=== PATIENT | female | born 1950 | race Caucasian/White ===

== ENCOUNTER → 2017-07-03 08:23 | Outpatient (CLI) | payer MEDICARE, OTHER, SELFPAY ==
--- NOTE | 2017-07-03 | CT_ITS ---
CT abdomen w con CLINICAL INDICATION: Epigastric pain and bloating, midepigastric pain ORDERING PHYSICIAN: Eboni Branch PATIENT AGE: 67 years COMPARISON: None TECHNIQUE: Axial images obtained immediately and delayed following contrast administration with sagittal and coronal reformats. PROCEDURE: Oral Contrast: Redicat IV Contrast: 75 mL Isovue-370. FINDINGS: The Lung bases are clear. Prior cholecystectomy. No ductal dilatation. No focal liver lesions. The spleen, pancreas, adrenal glands, and kidneys have an unremarkable appearance No intestinal obstruction or free air. Pelvis is not included in the exam. The appendix is not included. There are few scattered diverticula within descending colon and splenic flexure. The sigmoid colon is not included on the exam. No acute bony anomalies. There is degenerative disc disease at L2-L3. IMPRESSION: No acute finding of the upper abdomen. Prior cholecystectomy. Scattered colonic diverticulosis
[2017-07-03 09:09] LABS: Blood Urea Nitrogen 7 mg/dL (7-18); Estimated Glomerular Filt Rate 83 ml/min (>60); GFR (African American) 101 ML/MIN (>60)
--- NOTE | 2017-07-03 09:34 | HMH.ITSHM ---
FIBER,CARVEDILOL OMEPRAZOLE,FISHPILL,FLUOXETINE LOVASTATIN,LEVOTHYROIXINE,LOVASTATIN METFORMIN,MONTELELUST PANTOPRAZOLE,PEPCID,BENADRYL
== END ==
PROVIDERS: PCP Physician Assistant; Visit Provider Physician Assistant
DX: R10.13 Epigastric pain (principal); R14.0 Abdominal distension (gaseous); Z01.812 Encounter for preprocedural laboratory examination
CPT/HCPCS: 36415; 74160; 82565; 84520; Q9967

== ENCOUNTER → 2017-11-11 13:57 | Outpatient (CLI) | payer MEDICARE, OTHER, SELFPAY ==
--- NOTE | 2017-11-11 14:04 | XR_ITS ---
XR shoulder LT min 2V HISTORY: ITS.REASON: LEFT SHOULDER PAIN,MUSCLE TENSION,C-SPINE TENDER ORDERING PHYSICIAN: Eboni Branch PATIENT AGE: 67 years Comparison: None FINDINGS: No fracture or dislocation. No lytic or blastic change. There is normal mineralization. The joint spaces are well-preserved. No significant degenerative/arthritic changes. No erosive changes evident. IMPRESSION: Negative, no acute finding
--- NOTE | 2017-11-11 14:04 | XR_ITS ---
EXAM: XR cervical spine 5V HISTORY: ITS.REASON: LEFT SHOULDER PAIN,MUSCLE TENSION,C-SPINE TENDER ORDERING PHYSICIAN: Eboni Branch PATIENT AGE: 67 years COMPARISON: None FINDINGS: Normal alignment. No fracture or dislocation. No lytic or blastic change. No significant degenerative change. The disc spaces are preserved. IMPRESSION: Negative cervical spine
== END ==
PROVIDERS: PCP Physician Assistant; Visit Provider Physician Assistant
DX: M25.512 Pain in left shoulder (principal); M54.2 Cervicalgia
CPT/HCPCS: 72050; 73030

== ENCOUNTER → 2022-01-01 18:16 | Outpatient (CLI) | payer MEDICARE, SELFPAY | LOC: LAB 18:18 → LAB.DROPOF 01-02 10:37 | PROVIDERS: PCP Family Medicine; Visit Provider Family Medicine | DX: N39.0 Urinary tract infection, site not specified (principal); B96.29 Other Escherichia coli [E. coli] as the cause of diseases classified elsewhere | CPT/HCPCS: 87086; 87088; 87186 ==

== ENCOUNTER → 2022-08-16 11:00 | Outpatient (CLI) | payer MEDICARE, SELFPAY ==
[2022-08-16 19:08] LABS: Basophils # 0.1 K/mm3 (0-0.2); Basophils % 1.4 % (0.1-2.0); Eosinophils # 0.4 K/mm3 (0.0-0.4); Eosinophils % 5.6 % (0.1-12.0); Hematocrit 38.4 % (37.0-47.0); Lymphocytes # 1.9 K/mm3 (0.7-4.5); Lymphocytes % 23.5 % (10-50); Mean Corpuscular HGB Conc 31.4 g/dL (31.8-35.4); Mean Corpuscular Hemoglobin 26.4 pg (27.0-31.2); Mean Corpuscular Volume 83.9 fl (81-99); Mean Platelet Volume 11.9 fl (7.4-10.4); Monocytes # 0.5 K/mm3 (0.1-1.0); Monocytes % 6.6 % (1.7-9.3); Neutrophils % 62.8 % (37.0-80.0); Platelet Count 270 K/mm3 (142-424); Red Blood Count 4.57 M/mm3 (4.20-5.40); White Blood Count 7.9 K/mm3 (4.8-10.8)
[2022-08-16 19:25] LABS: Alanine Aminotransferase 13 U/L (12-78); Albumin Level 4.9 g/dl (3.5-5.0); Albumin/Globulin Ratio 1.9 (1.1-1.8); Alkaline Phosphatase 64 U/L (38-126); Anion Gap 15.5 mEq/L (5-15); Aspartate Amino Transferase 25 U/L (14-36); Bilirubin,Total 0.4 mg/dl (0.2-1.3); Blood Urea Nitrogen 8 mg/dl (7-17); Calcium 9.3 mg/dl (8.4-10.2); Carbon Dioxide 21 mmol/L (22.0-30.0); Chloride 104 mmol/L (98-107); Chol/HDL Ratio 3.8 (1-3.5); Cholesterol 196 mg/dl (140-200); Estimated Glomerular Filt Rate 62 ml/min (>60); GFR (African American) 74 ML/MIN (>60); Globulin 2.6 g/dL (1.3-3.2); Glucose 89 mg/dl (74-100); HDL Cholesterol 52 mg/dl (40-60); Potassium 4.5 mmoL/L (3.5-5.1); Sodium 136 mmol/L (136-145); Total Protein,Serum 7.5 g/dl (6.3-8.2); Triglycerides 185 mg/dl (30-150); VLDL Cholesterol 37 mg/dL (0-40)
[2022-08-16 19:36] LABS: Direct LDL Cholesterol 105.22 mg/dL (100-129)
[2022-08-16 19:57] LABS: Thyroid Stimulating Hormone 3.01 uIU/mL (0.465-4.68)
[2022-08-16 19:58] LABS: Hemoglobin A1C 5.2 % (4.0-6.0)
== END ==
PROVIDERS: PCP Nurse Practitioner Family; Visit Provider Nurse Practitioner Family
DX: E11.9 Type 2 diabetes mellitus without complications (principal); E89.0 Postprocedural hypothyroidism; I10 Essential (primary) hypertension; Z00.00 Encounter for general adult medical examination without abnormal findings; Z79.84 Long term (current) use of oral hypoglycemic drugs
CPT/HCPCS: 80053; 80061; 83036; 84443; 85025

== ENCOUNTER → 2022-08-17 19:06 | Outpatient (CLI) | payer MEDICARE, SELFPAY ==
[2022-08-17 21:35] LABS: Microalbumin/Creatinine Ratio 29.1
[2022-08-17 21:41] LABS: Creatinine,Urine Random 113 mg/dL (Not Estab.)
== END ==
PROVIDERS: PCP Nurse Practitioner Family; Visit Provider Nurse Practitioner Family
DX: E11.9 Type 2 diabetes mellitus without complications (principal); Z79.84 Long term (current) use of oral hypoglycemic drugs
CPT/HCPCS: 82043; 82570

== ENCOUNTER → 2022-08-30 09:51 | Outpatient (CLI) | payer MEDICARE, SELFPAY | PROVIDERS: PCP Family Medicine; Visit Provider Family Medicine | DX: R30.0 Dysuria (principal); B96.29 Other Escherichia coli [E. coli] as the cause of diseases classified elsewhere | CPT/HCPCS: 87086; 87088; 87186 ==

== ENCOUNTER → 2022-11-28 10:20 | Outpatient (CLI) | payer MEDICARE, SELFPAY ==
[2022-11-28 16:33] LABS: Basophils # 0.1 K/mm3 (0-0.2); Basophils % 0.9 % (0.1-2.0); Eosinophils # 0.5 K/mm3 (0.0-0.4); Eosinophils % 5.4 % (0.1-12.0); Hematocrit 34.9 % (37.0-47.0); Hemoglobin 10.8 g/dL (12.2-16.2); Lymphocytes # 1.5 K/mm3 (0.7-4.5); Lymphocytes % 18.4 % (10-50); Mean Corpuscular HGB Conc 31.1 g/dL (31.8-35.4); Mean Corpuscular Hemoglobin 27.9 pg (27.0-31.2); Mean Corpuscular Volume 89.7 fl (81-99); Mean Platelet Volume 10.9 fl (7.4-10.4); Monocytes # 0.5 K/mm3 (0.1-1.0); Monocytes % 6.2 % (1.7-9.3); Neutrophils # 5.7 K/mm3 (1.8-7.8); Neutrophils % 69.1 % (37.0-80.0); Platelet Count 270 K/mm3 (142-424); Red Blood Count 3.89 M/mm3 (4.20-5.40); Red Cell Distribution Width 15.4 % (11.5-17.5); White Blood Count 8.3 K/mm3 (4.8-10.8)
[2022-11-28 16:38] LABS: Alanine Aminotransferase 11 U/L (12-78); Albumin Level 4.6 g/dl (3.5-5.0); Albumin/Globulin Ratio 1.8 (1.1-1.8); Alkaline Phosphatase 118 U/L (38-126); Anion Gap 20.7 mEq/L (5-15); Aspartate Amino Transferase 28 U/L (14-36); Bilirubin,Total 0.4 mg/dl (0.2-1.3); Blood Urea Nitrogen 7 mg/dl (7-17); Calcium 10.1 mg/dl (8.4-10.2); Carbon Dioxide 20 mmol/L (22.0-30.0); Chloride 104 mmol/L (98-107); Cholesterol 146 mg/dl (140-200); Estimated Glomerular Filt Rate 55 ml/min (>60); GFR (African American) 66 ML/MIN (>60); Globulin 2.6 g/dL (1.3-3.2); Glucose 82 mg/dl (74-100); HDL Cholesterol 49 mg/dl (40-60); Magnesium 1.7 mg/dl (1.6-2.3); Potassium 4.7 mmoL/L (3.5-5.1); Sodium 140 mmol/L (136-145); Total Protein,Serum 7.2 g/dl (6.3-8.2); Triglycerides 129 mg/dl (30-150); VLDL Cholesterol 26 mg/dL (0-40)
[2022-11-28 16:49] LABS: Direct LDL Cholesterol 73.78 mg/dL (100-129)
== END ==
PROVIDERS: PCP Family Medicine; Visit Provider Family Medicine
DX: I10 Essential (primary) hypertension (principal); R53.83 Other fatigue; Z00.00 Encounter for general adult medical examination without abnormal findings; Z79.899 Other long term (current) drug therapy
CPT/HCPCS: 80053; 80061; 83735; 84443; 85025

== ENCOUNTER → 2023-01-03 16:40 | Outpatient (CLI) | payer MEDICARE, SELFPAY ==
[2023-01-03 16:31] LABS: Basophils # 0.1 K/mm3 (0-0.2); Basophils % 0.7 % (0.1-2.0); Eosinophils # 0.3 K/mm3 (0.0-0.4); Eosinophils % 4.3 % (0.1-12.0); Hematocrit 34.3 % (37.0-47.0); Hemoglobin 10.8 g/dL (12.2-16.2); Lymphocytes # 1.9 K/mm3 (0.7-4.5); Lymphocytes % 24.2 % (10-50); Mean Corpuscular HGB Conc 31.4 g/dL (31.8-35.4); Mean Corpuscular Hemoglobin 27.3 pg (27.0-31.2); Mean Corpuscular Volume 86.9 fl (81-99); Mean Platelet Volume 11.2 fl (7.4-10.4); Monocytes # 0.7 K/mm3 (0.1-1.0); Monocytes % 9.3 % (1.7-9.3); Neutrophils # 4.7 K/mm3 (1.8-7.8); Neutrophils % 61.5 % (37.0-80.0); Platelet Count 237 K/mm3 (142-424); Red Blood Count 3.94 M/mm3 (4.20-5.40); Red Cell Distribution Width 14.4 % (11.5-17.5); White Blood Count 7.7 K/mm3 (4.8-10.8)
== END ==
PROVIDERS: PCP Family Medicine; Visit Provider Family Medicine
DX: K59.00 Constipation, unspecified (principal)
CPT/HCPCS: 85025

== ENCOUNTER → 2023-04-04 23:46 | Outpatient (CLI) | payer MEDICARE, SELFPAY ==
--- OUTSIDE RECORDS SUMMARY | 2023-04-04 23:48 | XMS_ITS | Continuity of Care Document ---
Author Name Unknown Organization [facility] Address [address] [address] Phone Care Team Providers Care Utilization Management Nurse Name Role Phone Maverick Pino DO Unavailable Unavailable Allergies, Adverse Reactions, Alerts Substance Reaction Status Criticality methotrexate RashRash Active No Information grass pollen Active No Information tree and shrub pollen Active No Inf ormation Medications Medication Instructions Dosage Effective Dates (start - stop) Status Comments Plaquenil 200 mg tablet take 1 tablet by oral route 2 times every day 200 MG - Active pantoprazole 40 mg tablet,delayed release take 1 tablet by oral route every day 40 MG - Active Linzess 145 mcg capsule take 1 capsule by oral route every day on an empty stomach at least 30 minutes before 1st meal of the day 145 MCG - Active methimazole 10 mg tablet take 1 tablet by oral route 2 times every day 10 MG - Active diclofenac 1 % topical gel apply (2G) by topical route 2 times every day to the affected area(s) 2 G - Active Synthroid 75 mcg tablet take 1 tablet by oral route every day 75 MCG - Active
== END ==
PROVIDERS: PCP Family Medicine; Visit Provider Nurse Practitioner Family
DX: R30.0 Dysuria (principal); B96.29 Other Escherichia coli [E. coli] as the cause of diseases classified elsewhere; B96.1 Klebsiella pneumoniae [K. pneumoniae] as the cause of diseases classified elsewhere; B96.4 Proteus (mirabilis) (morganii) as the cause of diseases classified elsewhere
CPT/HCPCS: 87086

== ENCOUNTER 2023-08-02 08:42 | Outpatient (CLI) | payer MEDICARE, SELFPAY ==
--- NOTE | 2023-08-02 08:43 | FL_ITS ---
FINAL REPORT CLINICAL HISTORY: .dysphagia 2.33 fluoro time 2635.58 dap FINDINGS: UPPER GI WITH SBFT UPPER GI EXAM HISTORY: Abdominal pain, nausea. PROCEDURE: The patient ingested barium. Effervescent crystals were also administered. Spot and overhead films were obtained. FINDINGS: The esophagus is normal. There is no hiatal hernia. There is no gastroesophageal reflux. Peristalsis is normal. The rugal fold pattern of the stomach is normal. The duodenal bulb is normal. IMPRESSION: Normal upper GI. SBFT: The automobile salesman film is normal. There is no evidence of obstruction. The mucosal fold pattern is normal. The terminal ilium is normal. IMPRESSION: Normal SBFT. Fluoroscopy time: 2 minutes 33 seconds Fluoro dose: 2635.58 DAP in [employer] reviewed , interpreted and dictated by Dr. Angelica Rodriguez. Transcribed by James Giron PA-C. Reviewed, Interpreted and Dictated by Angelica Rodriguez MD Transcribed by DIONI Palma Authenticated and [facility]
[2023-08-02] MEDS: E-Z-GASII EFFERVESCENT GRANULES;1PK 1 EACH PO (09:19)
[2023-08-02] MEDS: BARIUM SULFATE (E-Z-HD 340GM);135ML BOTTLE 135 ML PO (09:19)
[2023-08-02] MEDS: BARIUM SULFATE(E-Z-AC);750ML BOTTLE 750 ML PO (09:19)
== END 2023-08-02 23:59 ==
LOC: RAD 08:43
PROVIDERS: PCP Family Medicine; Visit Provider Surgery
DX: R13.10 Dysphagia, unspecified (principal)
CPT/HCPCS: 74246; 74248

== ENCOUNTER 2023-08-09 09:51 | Day surgery (SDC) | payer MEDICARE, SELFPAY ==
[2023-08-07 12:07] VITALS: BMI 26.9
[2023-08-09 10:16] VITALS: BP 146/96; PULSE 64; RESP 18; TEMP 36.3; O2SAT 99
[2023-08-09] MEDS: LACTATED RINGERS 1000ML 1,000 ML 25 ML IV (10:16)
[2023-08-09 10:36] LABS: POC Glucose,Bedside 94 (70-110)
--- NOTE | 2023-08-09 11:15 | P.PNANES_ITS ---
[facility] Disclaimer: The information contained in this section may have been updated after the patient was seen, as this information can be updated by other users. Medical History DM2 (diabetes mellitus, type 2) Hypertension Rheumatoid arthritis Surgical History History of eye surgery History of tubal ligation History of hysterectomy S/P thyroidectomy Family History Grandmother Cancer Mother Cancer Father Heart attack Social History Smoking Status: Never smoker alcohol intake: never substance use type: denies use current occupational status: retired Travel in the last 8 weeks: None household members: spouse housing: house [facility] Anesthesia Checklist Patient Identification Patient Identification: Arm Band and Verbal (Name & ) Structural Data Admitted From: Home Planned Operative Procedure/s: EGD Consent for Planned Operative Procedure(s) Verified: Yes NPO Status Verified Time NPO: 00:00 Neurological Assessment Level of Consciousness: Awake Hx Seizures: No Numbness or tingling in extremities: No Anesthesia Plan Anesthesia Risk discussed: Yes Anesthesia Plan: Verified ASA Class: III Anesthesia Type: MAC
--- NOTE | 2023-08-09 11:39 | P.PCN_ITS ---
Procedure: Date: 08/09/23 Patient Date of :: 1950 Procedure Performed:: Esophagogastroduodenoscopy with biopsies Indications:: Patient is a 73-year-old female from [facility] referred by Audi ayala MD for swallowing issues . She states that I had previously performed cholecystectomy on her in [place] in 2011. She has had problems for many years consistent with dysphagia. She states that she has some substernal pain which radiates into her epigastric area to the left side. She does state that she has a known hiatal hernia. She was seen in the office in consultation she stated th at she has previously had colonoscopy done by Dr. Donnelly 3 years ago and that she has not had an upper endoscopy. She had a thyroidectomy 2 years ago. She occasionally awakens at night with heartburn. She has double of her proton pump inhibitors. She states that foods such as hamburger seemed to be somewhat worse. Arrangements were made to proceed with upper endoscopy with possible dilatation. I did have her undergo upper GI series to assess for stricture/stenosis/achalasia. She had a normal upper GI series with small bowel follow-through. She was seen in the preoperative area prior to planned endoscopy she stated that she believes she has had previous upper endoscopy by gastroenterology. . Performing Provider:: James Mullins MD Referring Provider:: Audi Poole MD Sedation:: MAC sedation Procedure:: Patient history was obtained and appropriate physical examination was performed. Patient's medications and allergies were reviewed. Informed consent was obtained after explaining the benefits, alternatives, and risks of the procedure including, but not limited to, bleeding, perforation, missed lesions, and adverse reaction to anesthesia medications. Patient was transported to endoscopy procedure room. Patient was connected to monitoring devices. Throughout the procedure the patient's blood pressure, pulse, and oxygen saturations were monitored continuously. Patient identification and planned procedure were verified by the staff. Patient was positioned in lateral decubitus position. Olympus endoscope was inserted via the oropharynx. Esophagus was cannulated. There was some mild tortuosity to the esophagus consistent with mild esophageal dysmotility. Gastroesophageal junction was encountered at approximately 38 cm. Stomach was cannulated and insufflated. Retroflexion revealed an extremely tiny sliding hiatal hernia. There were numerous polyps within the stomach consistent with fundic gland polyps. There were findings of mild to moderate nonerosive gastritis. Biopsy was performed at a couple of locations. Pylorus was traversed. Duodenum appeared unremarkable. Endoscope was withdrawn into the distal esophagus. A couple biopsies were obtained at the gastroesophageal junction. Distal esophageal biopsy was obtained to evaluate for microscopic esophagitis. Endoscope was withdrawn. . Findings:: Mild esophageal dysmotility Gastroesophageal junction at 38 cm Extremely tiny hiatal hernia Fundic gland polyps Mild to moderate nonerosive gastritis Recommendations:: Follow-up on biopsy results Complications:: None immediate Estimated blood obtained (mL): 2 Colonoscopy Component Colonoscopy Component Was a colonoscopy performed during today's procedure?: No
[2023-08-09 12:06] VITALS: BP 108/63; PULSE 73; RESP 16; TEMP 36.6; O2SAT 94
[2023-08-09 12:16] VITALS: BP 103/65; PULSE 70; RESP 18; O2SAT 99
[2023-08-09 12:26] VITALS: BP 103/50; PULSE 69; RESP 18; O2SAT 96
== END 2023-08-09 12:45 | disposition home or self-care (01) ==
PROVIDERS: PCP Family Medicine; Visit Provider Surgery
PROC: 0DJ08ZZ Inspection of Upper Intestinal Tract, Via Natural or Artificial Opening Endoscopic (ICD-10-PCS; CPT 43235; principal; 2023-08-09 11:00)
DX: R13.10 Dysphagia, unspecified (principal); K22.4 Dyskinesia of esophagus; K44.9 Diaphragmatic hernia without obstruction or gangrene; K31.7 Polyp of stomach and duodenum; K29.60 Other gastritis without bleeding; E11.9 Type 2 diabetes mellitus without complications
CPT/HCPCS: 43239; 82962; 88305

== ENCOUNTER 2023-09-02 17:37 | Outpatient (CLI) | payer MEDICARE, SELFPAY | END 2023-09-02 23:59 | LOC: LAB.DROPOF 17:37 | PROVIDERS: PCP Family Medicine; Visit Provider Family Medicine | DX: N39.0 Urinary tract infection, site not specified (principal); B96.89 Other specified bacterial agents as the cause of diseases classified elsewhere | CPT/HCPCS: 87086 ==

== ENCOUNTER 2023-09-11 09:07 | Outpatient (CLI) | payer MEDICARE, SELFPAY ==
--- NOTE | 2023-09-11 09:08 | CT_ITS ---
FINAL REPORT CLINICAL HISTORY: r/o hematoma; headache; falls FINDINGS: Axial images of the head were obtained without contrast. Coronal reformatted images were also obtained. This study was performed with techniques to keep radiation doses as low as reasonably achievable (ALARA). Individualized dose reduction techniques using automated exposure control or adjustment of mA and/or kV according to the patient''s size were employed. There is generalized age-appropriate atrophy. Periventricular low-attenuation areas are seen consistent with mild chronic ischemic changes. There is no evidence of intracranial hemorrhage or mass. There is no evidence of acute infarct. There is no evidence of shift of the midline structures. No skull abnormality is seen on the bone window images. IMPRESSION: Atrophy and mild periventricular chronic ischemic changes. No acute intracranial abnormality identified. Reviewed, Interpreted and Dictated by James Crenshaw III, MD Transcribed by Lorena Negron Authenticated and [facility]
== END 2023-09-11 23:59 | disposition home or self-care (01) ==
LOC: RAD 09:08
PROVIDERS: PCP Family Medicine; Visit Provider Family Medicine
DX: D64.9 Anemia, unspecified (principal); E89.0 Postprocedural hypothyroidism; E11.9 Type 2 diabetes mellitus without complications; I10 Essential (primary) hypertension; M06.9 Rheumatoid arthritis, unspecified; R51.9 Headache, unspecified
CPT/HCPCS: 70450

== ENCOUNTER 2023-11-21 13:10 | Outpatient (CLI) | payer MEDICARE, SELFPAY | END 2023-11-21 23:59 | disposition home or self-care (01) | LOC: LAB.DROPOF 11-22 09:52 | PROVIDERS: PCP Family Medicine; Visit Provider Nurse Practitioner Family | DX: R39.9 Unspecified symptoms and signs involving the genitourinary system (principal) | CPT/HCPCS: 87086 ==

== ENCOUNTER 2023-12-09 16:03 | Outpatient (CLI) | payer MEDICARE, SELFPAY ==
[2023-12-15 00:07] LABS: Atopobium vaginae Low - 0 Score (.); BVAB2 Low - 0 Score (.); Candida albicans NAA Negative (Negative); Candida glabrata Negative (Negative); Chlamydia Trachomatis NAA Negative (Negative); HSV 1 NAA Negative (Negative); HSV 2 NAA Negative (Negative); Megasphaera 1 Low - 0 Score (.); Neisseria gonorrhoeae NAA Negative (Negative); Trich vag NAA Negative (Negative)
== END 2023-12-09 23:59 | disposition home or self-care (01) ==
LOC: LAB.DROPOF 16:04
PROVIDERS: PCP Urology; Visit Provider Urology
DX: N89.8 Other specified noninflammatory disorders of vagina (principal)
CPT/HCPCS: 87491; 87529; 87591; 87661; 87798; 87801

== ENCOUNTER 2023-12-18 13:05 | Outpatient (CLI) | payer MEDICARE, SELFPAY ==
--- NOTE | 2023-12-18 13:06 | US_ITS ---
FINAL REPORT TECHNIQUE: Ultrasound images of the kidneys and bladder were obtained. CLINICAL HISTORY: .utis FINDINGS: The right kidney measures 8.2 cm in length. It is normal in echogenicity. There is no hydronephrosis. The left kidney measures 9.6 cm in length. It is normal in echogenicity. There is no hydronephrosis. The spleen is unremarkable. IMPRESSION: No acute process. Reviewed, Interpreted and Dictated by Angelica Rodriguez MD Transcribed by Lorena Negron Authenticated and [facility]
--- NOTE | 2023-12-18 13:06 | US_ITS ---
FINAL REPORT CLINICAL HISTORY: UTI FINDINGS: Limited sonographic images of the bladder were obtained. No bladder wall thickening is identified. At least 1 ureteral jet is visualized. There is a very small amount of postvoid residual of 18 cc. IMPRESSION: Very small amount of postvoid residual. Reviewed, Interpreted and Dictated by Angelica Rodriguez MD Transcribed by Lorena Negron Authenticated and [facility]
== END 2023-12-18 23:59 | disposition home or self-care (01) ==
LOC: RAD 13:06
PROVIDERS: PCP Family Medicine; Visit Provider Urology
DX: N39.3 Stress incontinence (female) (male) (principal); N39.0 Urinary tract infection, site not specified
CPT/HCPCS: 76770; 76857

== ENCOUNTER 2024-01-07 11:39 | Outpatient (CLI) | payer MEDICARE, SELFPAY | END 2024-01-07 23:59 | disposition home or self-care (01) | LOC: LAB.DROPOF 01-08 11:39 | PROVIDERS: PCP Nurse Practitioner Family; Visit Provider Nurse Practitioner Family | DX: R05.9 Cough, unspecified (principal); J06.9 Acute upper respiratory infection, unspecified | CPT/HCPCS: 87635 ==

== ENCOUNTER 2024-03-25 11:36 | Outpatient (CLI) | payer MEDICARE, SELFPAY | END 2024-03-25 23:59 | disposition home or self-care (01) | LOC: RT 11:38 | PROVIDERS: PCP Family Medicine; Visit Provider Nurse Practitioner Family | DX: R55 Syncope and collapse (principal) | CPT/HCPCS: 93225; 93227 ==

== ENCOUNTER 2024-03-27 12:45 | Outpatient (CLI) | payer MEDICARE, SELFPAY | END 2024-03-27 23:59 | disposition home or self-care (01) | LOC: RT 12:46 | PROVIDERS: PCP Family Medicine; Visit Provider Physician Assistant | DX: R55 Syncope and collapse (principal) | CPT/HCPCS: 93270 ==

== ENCOUNTER 2024-04-03 07:34 | Outpatient (CLI) | payer MEDICARE, SELFPAY ==
--- NOTE | 2024-04-03 07:42 | CA_ITS ---
APPROVED REPORT EXAM: Comprehensive 2D, Doppler, and color-flow Echocardiogram Precision Layout Worker: Diana Gonzales CRT Ht: 5 ft 2 in Wt: 156lbs BSA: 1.72 BP: 130/76 mmHg Indications: Chest Pain, Shortness of Breath, Fatigue, Peripheral Edema, Hyperlipidemia, Hypertension/HDD 2D Dimensions LA Volume 57.10 mL LA Volume Index 32.40 mL/m2 (M/F) 16-34 M-Mode Dimensions RVDd 2.54 cm (0.9-2.6) LA Diam 3.59 cm (1.9-4.0) LVDd 4.54 cm (3.5-5.7) LVDs 3.04 cm (3.5-5.7) IVSd 1.43 cm (0.6-1.1) PWd 1.14 cm (0.6-1.1) EF (Teich) 61.70% FS 33.00% EDV (Teich) 94.40 mL TAPSE 1.93 (<1.7) ESV (Teich) 36.20 mL LV Diastology E Decel Time 150 (160-240 msec) E/A Ratio 0.73 MED A' 8.60 cm/s LAT A' 8.80 cm/s Aortic Valve AO Peak GR. 7.20 mmHg Mitral Valve MV A Velocity 80.0 (40-130 cm/s) E/A Ratio 0.73 Pulmonary Valve PV Peak Velocity 117.0 (50-150 cm/s) Tricuspid Valve TR P. Velocity 243.00 cm/s RAP Estimate 10.00 mmHg RVSP 33.60 mmHg Left Ventricle The left ventricle is normal size. The left ventricular systolic function is normal. The left ventricular ejection fraction is within the normal range. There is increased LV wall thickness. There is normal LV segmental wall motion. Transmitral Doppler flow pattern suggests impaired LV relaxation. LVEF is 50-55%. Right Ventricle The right ventricle is not well-visualized, but grossly the RV is mild to moderately dilated. Right ventricle is mildly to moderately hypokinetic. Atria Left atrium is mildly dilated. Right atrium is mildly dilated. There is no Doppler evidence of interatrial shunt. Aortic Valve The aortic valve is mildly thickened. There is no aortic valvular stenosis. Trace aortic regurgitation. Mitral Valve The mitral valve leaflets are mildly thickened. No evidence of mitral valve stenosis. Trace mitral regurgitation. Tricuspid Valve The tricuspid valve leaflets are thin and pliable. Moderate tricuspid regurgitation. RVSP is 25 mmHg + RA pressure. Pulmonic Valve The pulmonary valve is normal in structure. Trace pulmonic regurgitation. Great Vessels The aortic root is normal in size. The ascending aorta is not well-visualized. The IVC is not well-visualized. Pericardium There is no pericardial effusion. Other Information Study Quality: Fair Conclusion Normal LV systolic function. The RV is not very well-visualized, but grossly there is mild to moderate RV dilation with mild to moderate reduction in RV function. Moderate TR. RVSP is 25 mmHg + RA pressure. Electronically signed by : More Cheung MD 04/10/2024 23:48:48
[2024-04-03 08:37] LABS: Basophils # 0.1 K/mm3 (0-0.2); Basophils % 1.3 % (0.1-2.0); Eosinophils # 0.4 K/mm3 (0.0-0.4); Eosinophils % 6.1 % (0.1-12.0); Hemoglobin 10.6 g/dL (12.2-16.2); Lymphocytes # 1.6 K/mm3 (0.7-4.5); Lymphocytes % 27.5 % (10-50); Mean Corpuscular HGB Conc 32.2 g/dL (31.8-35.4); Mean Corpuscular Hemoglobin 26.1 pg (27.0-31.2); Mean Corpuscular Volume 81.1 fl (81-99); Mean Platelet Volume 9.9 fl (7.4-10.4); Monocytes # 0.5 K/mm3 (0.1-1.0); Monocytes % 8.1 % (1.7-9.3); Neutrophils # 3.3 K/mm3 (1.8-7.8); Platelet Count 188 K/mm3 (142-424); Red Blood Count 4.07 M/mm3 (4.20-5.40); White Blood Count 5.8 K/mm3 (4.8-10.8)
[2024-04-03 09:22] LABS: Free T4 (Free Thyroxine) 1.02 ng/dl (0.78-2.19)
[2024-04-03 10:35] LABS: Albumin Level 4.8 g/dl (3.5-5.0); Chloride 107 mmol/L (98-107); Potassium 4.4 mmoL/L (3.5-5.1); Sodium 139 mmol/L (136-145)
[2024-04-03 10:37] LABS: Alanine Aminotransferase 16 U/L (12-78); Bilirubin,Unconjugated 0.1 mg/dL (0.0-1.1); Blood Urea Nitrogen 13 mg/dl (7-17); Estimated Glomerular Filt Rate 37 ml/min (>60); GFR (African American) 45 ML/MIN (>60)
[2024-04-03 10:38] LABS: Alkaline Phosphatase 55 U/L (38-126); Anion Gap 16.4 mEq/L (5-15); Aspartate Amino Transferase 35 U/L (14-36); Bilirubin,Direct 0.4 mg/dl (0.0-0.4); Bilirubin,Indirect 0.1 mg/dL (0.0-0.9); Bilirubin,Total 0.5 mg/dl (0.2-1.3); Calcium 9.6 mg/dl (8.4-10.2); Carbon Dioxide 20 mmol/L (22.0-30.0); Chol/HDL Ratio 3.6 (1-3.5); Cholesterol 191 mg/dl (140-200); Glucose 115 mg/dl (74-100); HDL Cholesterol 53 mg/dl (40-60); Total Protein,Serum 7.6 g/dl (6.3-8.2); Triglycerides 124 mg/dl (30-150); VLDL Cholesterol 25 mg/dL (0-40)
[2024-04-03 10:49] LABS: Direct LDL Cholesterol 107.52 mg/dL (100-129)
[2024-04-03 11:08] LABS: Thyroid Stimulating Hormone 0.87 uIU/mL (0.465-4.68)
== END 2024-04-03 23:59 | disposition home or self-care (01) ==
LOC: RT 07:36
PROVIDERS: PCP Family Medicine; Visit Provider Physician Assistant
DX: I36.1 Nonrheumatic tricuspid (valve) insufficiency (principal); R53.83 Other fatigue; R55 Syncope and collapse; R07.9 Chest pain, unspecified; R06.00 Dyspnea, unspecified; I10 Essential (primary) hypertension
CPT/HCPCS: 36415; 80048; 80061; 80076; 84439; 84443; 85025; 93306

== ENCOUNTER 2024-04-09 09:28 | Outpatient (CLI) | payer MEDICARE, SELFPAY ==
[2024-04-09 16:47] LABS: Creatinine,Urine Random 47 mg/dL (Not Estab.)
[2024-04-09 16:58] LABS: Microalbumin/Creatinine Ratio 70.6
== END 2024-04-09 23:59 | disposition home or self-care (01) ==
LOC: LAB.DROPOF 04-10 08:14
PROVIDERS: PCP Family Medicine; Visit Provider Family Medicine
DX: E11.9 Type 2 diabetes mellitus without complications (principal); R10.9 Unspecified abdominal pain; N39.0 Urinary tract infection, site not specified
CPT/HCPCS: 82043; 82570; 87086

== ENCOUNTER 2024-04-22 09:33 | Outpatient (CLI) | payer MEDICARE, SELFPAY ==
[2024-04-22 10:20] LABS: Anion Gap 18.5 mEq/L (5-15); Blood Urea Nitrogen 14 mg/dl (7-17); Calcium 9.7 mg/dl (8.4-10.2); Carbon Dioxide 20 mmol/L (22.0-30.0); Chloride 104 mmol/L (98-107); Estimated Glomerular Filt Rate 37 ml/min (>60); GFR (African American) 45 ML/MIN (>60); Glucose 95 mg/dl (74-100); Potassium 4.5 mmoL/L (3.5-5.1); Sodium 138 mmol/L (136-145)
== END 2024-04-22 23:59 | disposition home or self-care (01) ==
LOC: LAB 09:34
PROVIDERS: PCP Family Medicine; Visit Provider Physician Assistant
DX: R79.89 Other specified abnormal findings of blood chemistry (principal)
CPT/HCPCS: 36415; 80048

== ENCOUNTER 2024-05-29 15:22 | Emergency (ER) | payer MEDICARE, SELFPAY ==
[2024-05-29 16:10] VITALS: BP 114/47; PULSE 92; RESP 22; TEMP 36.8; O2SAT 98; BMI 25.6
[2024-05-29 16:32] LABS: UTC Influenza A Antigen Negative (Negative); UTC Influenza B Antigen Negative (Negative)
--- NOTE | 2024-05-29 16:34 | EXP.UTC ---
Discharge Plan Disposition Patient Disposition: Home, Self-Care Condition: Good Prescriptions Prescriptions: New oseltamivir [Tamiflu] 75 mg capsule 75 mg PO BID 5 Days Qty: 10 0RF No Action trazodone 50 mg tablet 50 mg PO HS Patient Comments: TAKE 2 TABLETS BY MOUTH AT BEDTIME NEEDED FOR SLEEP carvedilol 3.125 mg tablet 3.125 mg PO BID Patient Comments: TAKE 1 TABLET BY MOUTH TWICE DAILY WITH FOOD levothyroxine 75 mcg tablet 75 mcg PO DAILY Patient Comments: TAKE 1 TABLET BY MOUTH ONCE DAILY tamsulosin 0.4 mg capsule 0.4 mg PO DAILY Patient Comments: TAKE 1 CAPSULE BY MOUTH ONCE DAILY gemfibrozil 600 mg tablet 600 mg PO DAILY Patient Comments: TAKE 1 TABLET BY MOUTH ONCE DAILY FOR 90 DAYS FOR HYPERLIPIDEMIA pantoprazole 40 mg tablet,delayed release (DR/EC) 40 mg PO BID Patient Comments: TAKE 1 TABLET BY MOUTH TWICE DAILY FOR GERD buspirone 10 mg tablet 10 mg PO BID Patient Comments: TAKE 1 TABLET BY MOUTH TWICE DAILY FOR ANXIETY montelukast 10 mg tablet 10 mg PO DAILY Patient Comments: TAKE 1 TABLET BY MOUTH ONCE DAILY FOR ALLERGIES FOR 90 DAYS hydroxychloroquine 200 mg tablet 200 mg PO BID Patient Comments: TAKE 1 TABLET 2 TIMES EACH DAY lovastatin 20 mg tablet 20 mg PO DAILY Patient Comments: TAKE 2 TABLETS BY MOUTH ONCE DAILY Referrals Follow up/Referrals: Audi Poole MD [Primary Care Provider] - See instructions Activity Restrictions/Add. Instructions Additional Instructions/Restrictions: Start Tamiflu today if you are going to take it. Discussed risk and possible benefits. Lots of rest Increase Fluids water, Gatorade, powerade, pedialyte,if /toddler/child Alternate Tylenol and / or ibuprofen as discussed for fever, aches, chills Follow up IMMEDIATELY with your family doctor for new or worsening Symptoms OR no noticeable improvement over the next 48-72 hours, 911 for difficulty or breathing You or your child area contagious until no fever, aches, chills for 24 hours with medication for symptoms Help Prevent the spread of influenza: ?Wash your hands often. Use soap and water. Wash your hands after you use the bathroom, change a child's diapers, or sneeze. Wash your hands before you prepare or eat food. Use gel hand cleanser that has 60% alcohol, when soap and water are not available. Do not touch your eyes, nose, or mouth unless you have washed your hands first. Cover your mouth when you sneeze or cough. Cough into a tissue or the bend of your arm. If you use a tissue, throw it away immediately and wash your hands. Clean shared items with a germ-killing bottle packing machine cleaner. Clean table surfaces, doorknobs, and light switches. Do not share towels, silverware, and dishes with people who are sick. Wash bed sheets, towels, silverware, and dishes with soap and water. Wear a mask over your mouth and nose if you are sick. The face mask may help protect others from becoming infected with the flu. Wear the mask when in common areas of your home or if you seek care with a healthcare provider. Stay away from others if you are sick. Stay at home until 24 hours after your fever and symptoms are gone. Clinical Impressions Clinical Impression: Flu-like symptoms Instructions Patient Instructions: DI for Influenza -- Adult, Oseltamivir Print Language Print Language: Honduran Discharge ED Provider[place] Yane [place]on [facility] [place] General Stated complaint: flu exposure, chills, h/a, cough, sore throat Mode of Arrival: Ambulatory Source of Information: Patient Limitations: No Limitations Time Seen by Provider: 05/29/24 16:35 Description of Symptoms (Recalled from Triage Doc. by RN): PATIENT C/O SORE THROAT, CHILLS, AND BODY ACHES THAT STARTED TODAY. PATIENT STATES HER HAS THE FLU HEENT Symptoms (Recalled from RN notes): Yes Resp Symptoms (Recalled from RN notes): No Skin Symptoms (Recalled from RN notes): No MS Symptoms (Recalled from RN notes): No Functional Status (Recalled from RN notes): WNL History of Present Illness Provider Complaint: Patient states that her currently has the flu States today she started having symptoms and wanted to come in and get tamiflu States that she is having body aches, chills, headache and ear pain and scratchy throat Related Data Home Medications ?Medication ?Instructions ?Recorded ?Confirmed buspirone 10 mg tablet 10 mg PO BID 05/29/24 05/29/24 carvedilol 3.125 mg tablet 3.125 mg PO BID 05/29/24 05/29/24 gemfibrozil 600 mg tablet 600 mg PO DAILY 05/29/24 05/29/24 hydroxychloroquine 200 mg tablet 200 mg PO BID 05/29/24 05/29/24 levothyroxine 75 mcg tablet 75 mcg PO DAILY 05/29/24 05/29/24 lovastatin 20 mg tablet 20 mg PO DAILY 05/29/24 05/29/24 montelukast 10 mg tablet 10 mg PO DAILY 05/29/24 05/29/24 pantoprazole 40 mg tablet,delayed 40 mg PO BID 05/29/24 05/29/24 release tamsulosin 0.4 mg capsule 0.4 mg PO DAILY 05/29/24 05/29/24 trazodone 50 mg tablet 50 mg PO HS 05/29/24 05/29/24 Previous Rx's ?Medication ?Instructions ?Recorded oseltamivir 75 mg capsule (Tamiflu) 75 mg PO BID 5 days #10 caps 05/29/24 Allergies Allergy/AdvReac Type Severity Reaction Status Date / Time ampicillin AdvReac Gastrointestinal Verified 04/22/24 10:38 Upset Worker's Comp Is this a Worker's Comp case?: No [facility] Disclaimer: The information contained in this section may have been updated after the patient was seen, as this information can be updated by other users. Medical History (Updated 05/29/24 @ 16:41 by Yane Pavon APRN) Right ventricular dilation Wheezing Elevated serum creatinine DM2 (diabetes mellitus, type 2) Hypertension Rheumatoid arthritis Surgical History History of esophagogastroduodenoscopy (EGD) History of eye surgery History of tubal ligation History of hysterectomy S/P thyroidectomy Family History Grandmother Cancer Mother Cancer Father Heart attack Social History Smoking Status: Never smoker alcohol intake: never substance use type: denies use current occupational status: retired Travel in the last 8 weeks: None household members: spouse housing: house Have you lived/traveled outside US in past 30 days?: No Contact w/someone who lives/traveled outside US past 30 days?: No Exposure to someone with infectious disease in past 14 days?: Yes Do you have a fever (greater than 100.4 F or 38 C)?: No Have you tested positive for COVID-19: No Exposed to someone with COVID-19 in past 14 days?: No Do you have a sore throat?: Yes Do you have a cough?: Yes Do you have any weakness?: No Do you have any diarrhea?: No Are you experiencing any unusual bleeding?: No Do you have any muscle aches/pain?: No Do you have any abdominal pain?: No Are you experiencing loss of taste or smell?: No ROS Obtained: Yes All systems reviewed & no additional complaints except as documented and Yes Systems reviewed as appropriate & no additional complaints except as documented Constitutional Constitutional: Reports system reviewed and no additional complaints, except as documented, Reports as per HPI, Reports body ache, Reports chills, Reports fever(s) and Reports headache(s) ENT Ears, Nose, Mouth, and Throat: Reports system reviewed and no additional complaints, except as documented, Reports as per HPI, Reports headache(s), Reports nasal congestion, Reports nasal discharge and Reports sore throat Cardiovascular Cardiovascular: Reports system reviewed and no additional complaints, except as documented and Reports as per HPI Respiratory Respiratory: Reports system reviewed and no additional complaints, except as documented and Reports as per HPI Gastrointestinal Gastrointestingal: Reports system reviewed and no additional complaints, except as documented and as per HPI Neurologic Neurologic: Reports headache(s) Physical Exam General General appearance: alert and in no apparent distress ENT ENT exam: Present mucous membranes moist Expanded ENT Exam TM/Canal exam: Right TM: bulging Nose exam: Present other (clear drainage) Throat exam: Present normal inspection Respiratory Respiratory exam: Present normal lung sounds bilaterally; Absent respiratory distress or wheezes Cardiovascular Cardiovascular exam: Present regular rate, normal rhythm and normal heart sounds Abdominal Exam Abdominal exam: Present soft, distention and normal bowel sounds Neurological Exam Neurological exam: Present alert, oriented X3 and normal gait Medical Decision Making Medical Records Screening: Per USPSTF and CDC recommendations, given the prevalence of disease in our region, it is our hospital?s policy to screen for HIV and viral Hepatitis for all patients aged 18 and over and those with ongoing risk factors. [place] Inquiry Pt receiving controlled substance: No [place] was queried for this patient: No Vital Signs: 05/29/24 16:10 Temperature 98.2 F Temperature Source Oral Pulse Rate [Left Brachial] 92 H Respiratory Rate 22 Blood Pressure [Left Arm] 114/47 L Blood Pressure Mean [Left Arm] 69 Blood Pressure Source [Left Arm] Automatic Cuff Blood Pressure Position [Left Arm] Sitting 02 Sat by Pulse Oximetry 98 Oxygen Delivery Method Room Air Lab Data Lab results reviewed: Yes I reviewed the patient's lab results. Lab Results 05/29/24 16:09: Influenza Type A Ag Negative, Influenza Type B Ag Negative Medical Decision Narrative: discussed Mini Panel and pateint declined requesting Tamiflu
[2024-05-29 16:47] VITALS: BP 114/47; PULSE 92; RESP 22; TEMP 36.8; O2SAT 98
== END 2024-05-29 16:49 | disposition home or self-care (01) ==
PROVIDERS: Emergency Provider Nurse Practitioner; PCP Family Medicine
DX: J10.1 Influenza due to other identified influenza virus with other respiratory manifestations (principal)
CPT/HCPCS: 87804; 99213; G0381

== ENCOUNTER 2024-06-10 10:15 | Outpatient (CLI) | payer MEDICARE, SELFPAY | END 2024-06-10 23:59 | LOC: LAB.DROPOF 06-11 09:23 | PROVIDERS: PCP Family Medicine; Visit Provider Family Medicine | DX: J02.9 Acute pharyngitis, unspecified (principal) | CPT/HCPCS: 87070 ==

== ENCOUNTER 2024-08-24 09:27 | Outpatient (CLI) | payer MEDICARE, SELFPAY | END 2024-08-24 23:59 | disposition home or self-care (01) | LOC: LAB.DROPOF 08-26 11:46 | PROVIDERS: PCP Family Medicine; Visit Provider Family Medicine | DX: N30.00 Acute cystitis without hematuria (principal) | CPT/HCPCS: 87086; 87088; 87186 ==

== ENCOUNTER → 2024-09-24 09:51 | Outpatient (CLI) | payer MEDICARE, SELFPAY ==
--- OUTSIDE RECORDS SUMMARY | 2024-09-24 09:54 | XMS_ITS | Data Portability ---
Author Organization [facility] & [place] [facility] Address [address] [place] [id number] Assessment No assessment recorded. Plan of Treatment Reminders Order Date Submit Date Provider Last Modified By Organization Details Last Modified Time Details Appointments OV NEW 15 2024 02:00P Vesna Bhandari Jr, MD Not available Not available Not available OV EST 15 2024 01:00P Vesna Parekh M.D Not available Not available Not available Lab TSH + free T4, serum 2023 024 [facility] (Lab Registration) , [address] [place] [address] [place], [address], 05/19/2024 14:10:37 T3, total, serum 2023 024 [facility] (Lab Registration) , [address] [place] [address] [place], [address], 05/19/2024 14:10:37 TSH + free T4, serum 2023 024 dennise Blanchard [facility] (Lab Registration) , [address] [place] [address] [place], [address], 02/19/2024 08:34:34 T3, total, serum 2023 024 ANGELO Santo [facility] (Lab Registration) , [address] [place] [address] [place], [address], 05/15/2024 06:12:58 TSH + free T4, serum 2023 024 [facility] (Lab Registration) , [address] [place] [address] [place], [address], 12/17/2023 13:12:29 T3, total, serum 2023 024 [facility] (Lab Registration) , [address] [place] [address] [place], [address], 02/07/2024 13:12:09 TSH + free T4, serum 2023 024 [facility] (Lab Registration) , [address] [place] [address] [place], [address], 09/17/2023 13:19:01 T3, total, serum 2023 024 [facility] (Lab Registration) , [address] [place] [address] [place], [address], 12/13/2023 03:38:24 TSH + free T4, serum 2023 024 [facility] (Lab Registration) , [address] [place] [address] [place], [address], 06/04/2023 13:14:57 T3, total, serum 2023 024 [facility] (Lab Registration) , [address] [place] [address] [place], [address], 09/13/2023 11:19:12 Referral None recorded. Procedures None recorded. Surgeries None recorded. Imaging None recorded. Medication Orders levothyro xine 75 mcg tablet 2023 024 [facility] [place] [facility], [address], [place], [address], 05/19/2024 13:18:57 levothyro xine 75 mcg tablet 2023 024 [facility], [address], [place], [address], 02/19/2024 08:34:34 levothyro xine 75 mcg tablet 2023 024 [facility] [place] [facility], [address], [place], [address], 12/17/2023 13:10:46 levothyro xine 75 mcg tablet 2023 024 [facility], [address], [place], [address], 09/17/2023 13:17:41 levothyro xine 88 mcg tablet 2023 024 dennise [facility], [address], [place], [address], 09/17/2023 13:17:42 Patient TargetsNo targets recorded. Patient InstructionsNo instructions recorded. Reason for Referral None Reported. Results Created Date Observation Date Name Description Value Unit Range Abnormal Flag Note LastModifiedBy Organization Detail LastModifiedTime 05/29/2005/29/2023 T4 FREE T4 free 1.32 NG/dL 0.78-2 .19 Not Available [facility] (Pre[facility]Op [facility]) [address] [place] [address] [place], [address], 05/29/2023 16:11:41 05/29/2005/29/2023 T4 FREE note Unles s other ramirez noted testi ng perfo [facility]med at: [facility] [address] [place] [address] Guero laguerre MD Not Available [facility] ([facility]Op [facility]) [address] [place] [address] [place], [address], 05/29/2023 16:11:41 05/29/20 23 05/29/2023 TSH thyroid stim hormone 0.23 uIU/m L 0.465- 4.68 low Not Available [facility] (Pre[facility]Op Clinic) [address] [place] [address] [place], [address], 05/29/2023 16:54:37 05/29/20 23 05/29/2023 TSH note Unles s other ramirez noted testi ng perfo [facility]med at: [facility] [address] [place] [address] Guero laguerre MD Not Available [facility] ([facility]Op [facility]) [address] [place] [address] [place], [address], 05/29/2023 16:54:37 05/29/20 23 05/29/2023 T3 TOTAL note Unles s other ramirez noted testi ng perfo rmed at: [facility] [address] [place] [address] Guero laguerre MD Not Available [facility] ([facility]Op [facility]) [address] [place] [address] [place], [address], 05/30/2023 08:16:33 05/29/20 23 05/30/2023 T3 TOTAL triiodothyro nine (T3) 78 NG/dL 71-180 Perfo rmed at: - [facility] [address] [place], [place] [id number] Lab Direc tor: Nicola jacobsen PhD, Phone : [phone] Not Available [facility] (Pre[facility]Op [facility]) [address] [place] [address] [place], [address], 05/30/2023 08:16:33 09/12/19 24 09/12/2023 T4 FREE T4 free 1.17 NG/dL 0.78-2 .19 Not Available [facility] ([facility]Op [facility]) [address] [place] [address] [place], [address], 09/12/2023 11:00:44 09/12/19 24 09/12/2023 T4 FREE note Unles s other ramirez noted testi ng perfo rmed at: [facility] [address] [place] [address] Guero laguerre MD Not Available [facility] ([facility]Op [facility]) [address] [place] [address] [place], [address], 09/12/2023 11:00:44 09/12/19 24 09/12/2023 TSH thyroid stim hormone 0.04 uIU/m L 0.465- 4.68 low Not Available [facility] ([facility]Op [facility]) [address] [place] [address] [place], [address], 09/12/2023 11:16:14 09/12/19 24 09/12/2023 TSH note Unles s other ramirez noted testi ng perfo rmed at: [facility] [address] [place] [address] Guero laguerre MD Not Available [facility] ([facility]) [address] [place] [address] [place], [address], 09/12/2023 11:16:14 09/12/19 24 09/12/2023 T3 TOTAL note Unles s other ramirez noted testi ng perfo rmed at: [facility] [address] [place] [address] Guero laguerre MD Not Available [facility] ([facility]) [address] [place] [address] [place], [address], 09/13/2023 11:19:12 09/12/19 24 09/13/2023 T3 TOTAL triiodothyro nine (T3) 89 NG/dL 71-180 [place]: [place] [address] Lab Direc tor: Nicola jacobsen PhD, Phone : [phone] Not Available [facility] ([facility]) [address] [place] [address] [place], [address], 09/13/2023 11:19:12 12/12/19 24 12/12/2023 T4 FREE T4 free 1.02 NG/dL 0.78-2 .19 Not Available [facility] ([facility]Op [facility]) [address] [place] [address] [place], [address], 12/12/2023 11:29:29 12/12/19 24 12/12/2023 T4 FREE note Unlfide s other ramirez noted testi ng perfo rmed at: [facility] [address] [place] [address] Guero laguerre MD Not Available [facility] ([facility]) [address] [place] [address] [place], [address], 12/12/2023 11:29:29 12/12/19 24 12/12/2023 TSH thyroid stim hormone 4.76 uIU/m L 0.465- 4.68 high Not Available [facility] ([facility]Op [facility]) [address] [place] [address] [place], [address], 12/12/2023 11:52:55 12/12/19 24 12/12/2023 TSH note Joan s other ramirez noted testi ng perfo rmed at: [facility] [address] [place] [address] Guero laguerre MD Not Available [facility] ([facility]) [address] [place] [address] [place], [address], 12/12/2023 11:52:55 12/12/19 24 12/12/2023 T3 TOTAL note Joan s other ramirez noted testi ng perfo rmed at: [facility] [address] [place] [address] Guero laguerre MD Not Available [facility] ([facility]) [address] [place] [address] [place], [address], 12/13/2023 03:38:24 12/12/19 24 12/13/2023 T3 TOTAL triiodothyro nine (T3) 98 NG/dL 71-180 Perfo rmed at: CB - [facility] [address] [place] [address] [facility] Lab Direc tor: Nicola jacobsen PhD, Phone : [phone] Not Available [facility] ([facility]) [address] [place] [address] [place], [address], 12/13/2023 03:38:24 02/06/20 24 02/06/2024 T4 FREE T4 free 1.15 NG/dL 0.78-2 .19 Not Available [facility] ([facility]) [address] [place] [address] [place], [address], 02/06/2024 10:58:36 02/06/20 24 02/06/2024 T4 FREE note Unles s other ramirez noted testi ng perfo rmed at: [facility] [address] [place] [address] Guero laguerre MD Not Available [facility] ([facility]) [address] [place] [address] [place], [address], 02/06/2024 10:58:36 02/06/20 24 02/06/2024 TSH thyroid stim hormone 2.55 uIU/m L 0.465- 4.68 Not Available [facility] ([facility]) [address] [place] [address] [place], [address], 02/06/2024 11:18:44 02/06/20 24 02/06/2024 TSH note Unles s other ramirez noted testi ng perfo rmed at: [facility] [address] [place] [address] Gueor laguerre MD Not Available [facility] ([facility]) [address] [place] [address] [place], [address], 02/06/2024 11:18:44 02/06/20 24 02/06/2024 T3 TOTAL note Unles s other ramirez noted testi ng perfo rmed at: [facility] [address] [place] [address] Guero laguerre MD Not Available [facility] ([facility]) [address] [place] [address] [place], [address], 02/07/2024 13:12:09 02/06/20 24 02/07/2024 T3 TOTAL triiodothyro nine (T3) 83 NG/dL 71-180 Perfo rmed at: - [facility] [address] [place] [address] Lab Direc tor: Nicola jacobsen PhD, Phone : [phone] Not Available [facility] ([facility]) [address] [place] [address] [place], [address], 02/07/2024 13:12:09 05/14/20 24 05/14/2024 T4 FREE T4 free 1.42 NG/dL 0.78-2 .19 Not Available [facility] ([facility]) [address] [place] [address] [place], [address], 05/14/2024 11:48:55 05/14/20 24 05/14/2024 T4 FREE note Joan s other ramirez noted testi ng perfo rmed at: [facility] [address] [place] [address] Guero laguerre MD Not Available [facility] ([facility]) [address] [place] [address] [place], [address], 05/14/2024 11:48:55 05/14/20 24 05/14/2024 TSH thyroid stim hormone 1.37 uIU/m L 0.465- 4.68 Not Available [facility] ([facility]) [address] [place] [address] [place], [address], 05/14/2024 12:15:21 05/14/20 24 05/14/2024 TSH note Unles s other ramirez noted testi ng perfo rmed at: [facility] [address] [place] [address] Guero laguerre MD Not Available [facility] ([facility]) [address] [place] [address] [place], [address], 05/14/2024 12:15:21 05/14/20 24 05/14/2024 T3 TOTAL note Unles s other ramirez noted testi ng perfo rmed at: [facility] [address] [place] [address] Guero laguerre MD Not Available [facility] ([facility]) [address] [place] [address] [place], [address], 05/15/2024 06:12:58 05/14/20 24 05/15/2024 T3 TOTAL triiodothyro nine (T3) 82 NG/dL 71-180 Perfo rmed at: CB - [facility] [address] [facility], [place] [address] Lab Direc tor: Nicola jacobsen PhD, Phone : [phone] Not Available [facility] ([facility]) [address] [place] [address] [place], [address], 05/15/2024 06:12:58 Result Notes None recorded. Problems Name Problem SNOMED Code Status Onset Date Resolution Date Notes Provider Name and Address Organization Details Recorded Time Hypothyroid ism 03975746 Active 2021 Trinidad benites, [place] - [facility] [place] [facility] [place] 2 09:19:55 Essential hypertensio n 40234686 Active 2021 Trinidad [place]ites, [place] [facility] [place] [facility] [place] 2 09:20:01 Asthma 467016197 Active 2021 Trinidad benites, [place] [facility] [place] [facility] [place] 2 09:20:10 Seasonal allergy 462645065 Active 2021 Trinidad Jain null, [place] - [facility] [place] [facility] [place] 2 09:20:27 Gastroesoph ageal reflux disease 452602374 Active 2021 Trinidad [place]ites[place] [facility] [place] [facility] [place] 2 09:20:32 Type 2 diabetes mellitus 79900531 Active 2021 Trinidad [place]ites[place] [facility] [place] [facility] [place] 2 09:21:02 Hyperlipide katie 10983896 Active 2021 Trinidad Jain [place] [facility] [place] [facility] [place] 2 09:21:19 Osteoarthri tis 206287483 Active 2021 Trinidad J[place] [facility] [place] [facility] [place] 2 09:21:25 Rheumatoid arthritis 50783544 Active 2021 Trinidad Gilangela null[place] [facility] [place] [facility] [place] 2 09:21:30 Fibromyalgi a 336344025 Active 2021 Trinidad Jain [place] [facility] [place] [facility] [place] 2 09:21:39 Tuberculosi s 85743504 Completed 202103/09/2022 Trinidad Albrightangela null[place] [facility] [place] [facility] [place] 2 09:21:53 Problem Notes None recorded. Procedures Surgical History Date Name Laterality Status Provider Name and Address Organization Details Recorded Time 02/02/20 21 Thyroidectomy completed Trinidad Jain [place] - [facility] [place] [facility] [place] 03/09/2022 09:26:34 operation on urinary bladder completed Trinidad Gilangela [place] - [facility] - [place] [facility] [place] 03/09/2022 09:25:09 Tubal Ligation completed Trinidadvilma Albrightangela [place] - [facility] - [place] [facility] [place] 03/09/2022 09:25:20 Cholecystectomy completed Trinidad Susy ARABELLA - [facility] - [place] [facility] [place] 03/09/2022 09:25:32 Unlisted procedure nose completed Trinidadvilma Albrightangela [place] - [facility] - [place] [facility] [place] 03/09/2022 09:26:07 hysterectomy completed Trinidad Gilangela [place] - [facility] - [place] [facility] [place] 03/09/2022 09:26:20 Imaging Results None recorded. Procedure Notes None recorded. Medical Equipment None Reported. Allergies Allergen ID Allergen Name Allergen Category Reaction Reaction Severity Criticality Documentation Date Start Date Code Code System Note Provider Name and Address Organization Details Recorded Time 524141 amoxicill in medicatio n Not available Not available Not available 09/17/2023 723 RxNorm Shantell benites, [place] [facility] & [place] 4 13:14:25 [address] fenofibra te medicatio n itching Not available Not available 03/09/2022 8703 RxNorm ARABELLA Zavala [facility] & [place] 2 09:19:02 68320 red yeast rice food,medi cation itching Not available Not available 03/09/2022 48460 0 RxNorm ARABELLA Zavala [facility] & [place] 2 09:19:17 Medications Name Sig Start Date Stop Date Status Note LastModified by Organization Details LastModified Time Prescriptio n - Change active Not Available Not Available N ot Available losartan 50 mg tablet TAKE 1/2 (ONE-HALF ) TABLET BY MOUTH ONCE DAILY 05/22 completed Not Available Not Available Not Available amoxicillin 500 mg capsule TAKE 1 CAPSULE BY MOUTH TWICE DAILY 09/16 completed Not Available Not Available Not Available latanoprost 0.005 % eye drops INSTILL 1 DROP INTO RIGHT EYE EVERY DAY AT BEDTIME active Not Available Not Available No t Available promethazin e-DM 6.25 mg-15 mg/5 mL oral syrup TAKE 10 ML (2 TEASPOONF UL) EVERY 4 TO 6 HOURS NEEDED FOR COUGH 05/19 completed Not Available Not Available Not Available neomycin-po lymyxin-hyd rocort 3.5 mg/mL-10,00 0 unit/mL-1 % ear solution PLACE 4 DROPS IN THE AFFECTED EAR(S) 3 TIMES EACH DAY 05/19 completed Not Available Not Available Not Available carvedilol 6.25 mg tablet TAKE 1 TABLET BY MOUTH TWICE DAILY. TAKE WITH A MEAL/FOOD 05/19 completed Not Available Not Available Not Available trazodone 50 mg tablet TAKE 2 TABLETS BY MOUTH AT BEDTIME NEEDED FOR SLEEP active Not Available Not Available No t Available ibuprofen 800 mg tablet TAKE 1 TABLET BY MOUTH THREE TIMES DAILY WITH FOOD NEEDED 05/19 completed Not Available Not Available Not Available fluconazole 150 mg tablet TAKE 1 TABLET TODAY. REPEAT IN 3 DAYS active Not Available Not Available No t Available valacyclovi r 1 gram tablet TAKE 1 TABLET BY MOUTH ONCE DAILY 05/19 completed Not Available Not Available Not Available hydrocodone 5 mg-acetamin ophen 325 mg tablet TAKE 1 TABLET BY MOUTH THREE TIMES DAILY 09/16 completed Not Available Not Available Not Available ciprofloxac in 500 mg tablet TAKE 1 TABLET BY MOUTH EVERY 12 HOURS FOR 10 DAYS 04/17 completed Not Available Not Available Not Available sulfamethox azole 800 mg-trimetho prim 160 mg tablet TAKE 1 TABLET BY MOUTH TWICE DAILY 09/16 completed Not Available Not Available Not Available carvedilol 3.125 mg tablet TAKE 1 TABLET BY MOUTH TWICE DAILY WITH FOOD active Not Available Not Available No t Available levothyroxi ne 75 mcg tablet Take 1 tablet every day by oral route for 90 days. active Not Available Not Available No t Available oxycodone-a cetaminophe n 5 mg-325 mg tablet TAKE 1 TABLET BY MOUTH EVERY 4 HOURS 09/16 completed Not Available Not Available Not Available levothyroxi ne 88 mcg tablet TAKE 1 TABLET BY MOUTH ONCE DAILY FOR 90 DAYS 09/16 completed Not Available Not Available Not Available tamsulosin 0.4 mg capsule TAKE 1 CAPSULE BY MOUTH ONCE DAILY active Not Available Not Available No t Available dicyclomine 20 mg tablet TAKE 1 TABLET BY MOUTH TWICE DAILY NEEDED 30 MINUTES TO 1 HOUR BEFORE MEALS NEEDED FOR ABDOMINAL PAIN 05/19 completed Not Available Not Available Not Available benzonatate 100 mg capsule TAKE 1 CAPSULE BY MOUTH THREE TIMES DAILY NEEDED FOR COUGH 06/04 completed Not Available Not Available Not Available gemfibrozil 600 mg tablet TAKE 1 TABLET BY MOUTH ONCE DAILY FOR 90 DAYS FOR HYPERLIPI DEMIA active Not Available Not Available No t Available levothyroxi ne 50 mcg tablet TAKE 1 TABLET BY MOUTH ONCE DAILY IN THE MORNING ON AN EMPTY STOMACH 09/16 completed Not Available Not Available Not Available hydrocodone 7.5 mg-acetamin ophen 325 mg tablet TAKE 1 TABLET BY MOUTH THREE TIMES DAILY 09/16 completed Not Available Not Available Not Available cephalexin 500 mg capsule TAKE 1 CAPSULE 4 TIMES EACH DAY FOR 10 DAYS 05/19 completed Not Available Not Available Not Available pantoprazol e 40 mg tablet,kassidy yed release TAKE 1 TABLET BY MOUTH TWICE DAILY FOR GERD active Not Available Not Available No t Available oseltamivir 75 mg capsule active Not Available Not Available Not Available metformin 1,000 mg tablet TAKE 1 TABLET BY MOUTH TWICE DAILY FOR DIABETES 05/19 completed Not Available Not Available Not Available nitrofurant oin macrocrysta l 100 mg capsule TAKE 1 CAPSULE BY MOUTH AT BEDTIME AT NIGHT MUST ADMINISTE R WITH A MEAL/FOOD active Not Available Not Available No t Available buspirone 10 mg tablet TAKE 1 TABLET BY MOUTH TWICE DAILY FOR ANXIETY active Not Available Not Available No t Available losartan 25 mg tablet TAKE 1 TABLET BY MOUTH ONCE DAILY FOR HYPERTENS ION 05/19 completed Not Available Not Available Not Available montelukast 10 mg tablet TAKE 1 TABLET BY MOUTH ONCE DAILY FOR ALLERGIES FOR 90 DAYS active Not Available Not Available No t Available codeine 10 mg-guaifene sin 100 mg/5 mL oral liquid TAKE 10 ML EVERY 4 TO 6 HOURS NEEDED FOR COUGH 09/16 completed Not Available Not Available Not Available hydroxychlo roquine 200 mg tablet TAKE 1 TABLET 2 TIMES EACH DAY active Not Available Not Available No t Available lovastatin 20 mg tablet TAKE 2 TABLETS BY MOUTH ONCE DAILY active Not Available Not Available No t Available methylpredn isolone 4 mg tablets in a dose pack TAKE ACCORDING TO PACKAGE INSTRUCTI ONS 02/17 completed Not Available Not Available Not Available ketoconazol e 2 % topical cream APPLY CREAM TOPICALLY TWICE DAILY FOR YEAST DERMATITI S active Not Available Not Available No t Available ondansetron 4 mg disintegrat ing tablet PLACE 1 TABLET UNDER THE TONGUE AND ALLOW TO DISSOLVE EVERY 8 HOURS NEEDED FOR NAUSEA AND VOMITING 05/19 completed Not Available Not Available Not Available fluoxetine 20 mg capsule TAKE 1 CAPSULE BY MOUTH ONCE DAILY FOR 90 DAYS active Not Available Not Available No t Available Premarin 0.625 mg/gram vaginal cream APPLY TO URETHRA AND VAGINAL OPENING NIGHTLY 05/22 completed Not Available Not Available Not Available nitrofurant oin monohydrate /macrocryst als 100 mg capsule TAKE 1 CAPSULE BY MOUTH EVERY 12 HOURS WITH A MEAL/FOOD FOR 10 DAYS 05/19 completed Not Available Not Available Not Available chlorhexidi ne gluconate 0.12 % mouthwash RINSE AND SPIT 15ML (1 CAPFUL) IN MOUTH FOR 30 SECONDS TWICE A DAY IN THE MORNING AND EVENING AFTER TOOTHBRUS LOGAN. DO NOT SWALLOW. 05/19 completed Not Available Not Available Not Available Linzess 145 mcg capsule TAKE 1 CAPSULE BY MOUTH ONCE DAILY FOR CONSTIPAT ION 05/19 completed Not Available Not Available Not Available Vitals Date Recorded Body height Body mass index (BMI) Body weight Heart rate Oxygen saturation Oxygen saturation in Arterial blood by Pulse oximetry Body temperature Systolic blood pressure Diastolic blood pressure Provider Name and Address Organization Details Last Updated DateTime 4 160.02 cm 26.7 kg/m2 70448.4 5 g 64 /min 98 % 98 % 97.1 [degF] 138 mm[Hg] 71 mm[Hg] Shantell ESTEBAN [facility] [place] 4 13:07:59 Date Recorded Body height Body mass index (BMI) Body weight Heart rate Oxygen saturation Oxygen saturation in Arterial blood by Pulse oximetry Body temperature Systolic blood pressure Diastolic blood pressure Provider Name and Address Organization Details Last Updated DateTime 4 160.02 cm 25.5 kg/m2 41739.5 8 g 72 /min 97 % 97 % 96.7 [degF] 114 mm[Hg] 65 mm[Hg] Shantell ESTEBAN [facility] [place] 4 13:14:00 Date Recorded Body height Body mass index (BMI) Body weight Heart rate Oxygen saturation Oxygen saturation in Arterial blood by Pulse oximetry Body temperature Systolic blood pressure Diastolic blood pressure Provider Name and Address Organization Details Last Updated DateTime 4 160.02 cm 27.1 kg/m2 06225.3 5 g 77 /min 97 % 97 % 96.6 [degF] 107 mm[Hg] 63 mm[Hg] Shantell ESTEBAN [facility] [place] 4 13:07:10 Date Recorded Body height Body mass index (BMI) Body weight Heart rate Oxygen saturation Oxygen saturation in Arterial blood by Pulse oximetry Body temperature Systolic blood pressure Diastolic blood pressure Provider Name and Address Organization Details Last Updated DateTime 4 160.02 cm 27.8 kg/m2 84499.7 2 g 65 /min 97 % 97 % 96.2 [degF] 125 mm[Hg] 73 mm[Hg] Shantell ESTEBAN [facility] [place] 4 13:15:04 Date Recorded Body height Body mass index (BMI) Body weight Heart rate Oxygen saturation Oxygen saturation in Arterial blood by Pulse oximetry Systolic blood pressure Diastolic blood pressure Provider Name and Address Organization Details Last Updated DateTime 4 160.02 cm 28 kg/m2 66356.8 8 g 78 /min 99 % 99 % 115 mm[Hg] 77 mm[Hg] Adina ESTEBAN [facility] & [place] 4 13:03:26 Social History None recorded. Functional Status None recorded. Mental Status None recorded. Family History Relationship Description Onset Age of this Age Resolved Age Notes LastModified by Organization Details LastModified Time Mother Coronary arterioscler osis deceas ed [email or web address] Not available 03/09/2022 09:22:17 Mother Malignant neoplasm of uterus dece ed [email or web address] Not available 03/09/2022 09:22:31 Mother Tuberculosis [email or web address] Not avai lable 03/09/2022 09:22:41 Father Myocardial infarction dece ed [email or web address] Not available 03/09/2022 09:22:52 Sister Alzheimer's disease dece ed [email or web address] Not available 03/09/2022 09:23:10 Daughter Diabetes mellitus [email or web address] Not available 2021 09:23:22 Daughter Hypertensive disorder [email or web address] Not available 2021 09:23:34 Daughter Hyperlipidem ia [email or web address] Not available 2021 09:23:43 Daughter Hypothyroidi sm jkiskaden Not available 2021 09:23:56 Maternal Grandmother Malignant tumor of breast dece ed [email or web address] Not available 03/09/2022 09:24:29 Maternal Grandmother Cerebrovascu lar accident dece ed [email or web address] Not available 03/09/2022 09:24:47 Medical History Condition Response Allergies/Hayfever Y Diabetes Y Fibromyalgia Y Arthritis Y Hypertension Y Hypothyroidism Y High Cholesterol Y Gynecological HistoryNo gynecological history recorded. Obstetrics History GPAL:G 0 P 0 0 0 0 Immunizations Vaccine Type Date Status Note Provider Nam e and Address Organization Details Recorded Time COVID-19, mRNA, LNP-S, PF, 100 mcg/0.5mL dose or 50 mcg/0.25mL dose 07/07/2020 completed ARABELLA Zavala [facility] [place] 03/09/2022 09:19:35 COVID-19, mRNA, LNP-S, PF, 100 mcg/0.5mL dose or 50 mcg/0.25mL dose 08/04/2020 completed ARABELLA Zavala - [facility] - [place] & [place] 03/09/2022 09:19:40 Past Encounters Encounter ID Performer Location Encounter Start Date Encounter Closed Date Diagnosis/Indication Diagnosis SNOMED-CT Code Diagnosis ICD10 Code Diagnosis Note [id number] Floyd Ludwig [address] [address] 04/17/2022 13:04:46 04/17/2022 15:11:56 Hypothyroidism 10150749 E03.9 Acquired hypothyroidism 590434947 E03.9 Gastroesop hageal reflux disease 765286529 K21.9 [id number] [facility] [place] [id number] 6 05/22/2022 13:17:12 05/22/2022 16:52:05 Acquired hypothyroidism [id number] E03.9 [id number] Floyd Ludwig [address] [address] 10/30/2022 13:03:04 10/30/2022 13:27:53 Acquired hypothyroidism 303653500 E03.9 [id number] Floyd Ludwig [address] [address] 01/01/2023 14:23:03 01/01/2023 14:53:19 Acquired hypothyroidism 008778202 E03.9 [id number] Floyd Ludwig [address] [address] 04/09/2023 13:39:04 04/09/2023 14:21:34 Acquired hypothyroidism 324816203 E03.9 [id number] Floyd Ludwig [address] [address] 06/04/2023 12:51:53 06/04/2023 13:42:12 Acquired hypothyroidism 115037320 E03.9 [id number] Megan Parekh M.D [facility] [address] [place] [address] 09/17/2023 13:09:00 09/17/2023 13:19:26 Acquired hypothyroidism [id number] E03.9 [id number] [facility] [address] [place] [address] 12/17/2023 12:45:09 12/17/2023 13:14:49 Acquired hypothyroidism 702462025 E03.9 [id number] Megan Parekh M.D [facility] [address] [place] [address] 02/18/2024 12:57:56 02/18/2024 13:30:27 Acquired hypothyroidism 579940866 E03.9 [id number] [facility] [address] [place] [address] 05/19/2024 12:55:51 05/19/2024 13:19:07 Acquired hypothyroidism 633311951 E03.9 Health Concerns Section Related Observation LastModified by Organization Detai ls LastModified Time None Recorded Concern Status LastModified by Organization Details LastModified Time None Recorded Advance Directives Directive None Recorded Payers Encounter Date Sequence Insurance Name Policy Number Policy Barbour Covered Member ID Barbour Member ID Guarantor Name 06/04/2023 1 [employer] (MEDICARE REPLACEMENT/ ADVANTAGE - PPO) Kathleen Dennis Livingood [id number] Kathleen Dennis Livingood 09/17/2023 1 [employer] (MEDICARE REPLACEMENT/ ADVANTAGE - PPO) Kathleen Dennis Livingood [id number] Kathleen Dennis Livingood 12/17/2023 1 [employer] (MEDICARE REPLACEMENT/ ADVANTAGE - PPO) Kathleen Dennis Livingood [id number] Kathleen Dennis Livingood 02/18/2024 1 [employer] (MEDICARE REPLACEMENT/ ADVANTAGE - PPO) Kathleen Dennis Livingood [id number] Kathleen Sonny Ordonez 05/19/2024 1 [employer] (MEDICARE REPLACEMENT/ ADVANTAGE - PPO) Kathleen Ordonez [id number] Kathleen Ordonez Notes Date Note Type Note Provider Name and Address Organization Details Recorded Time 06/04/2023 text/html Patient follows up for their {{hypothyroidism* hyp erthyroidism}}managem ent. s/p total thyroidectomy for multinodular goiter in 2020.{{Patient admits to cold intolerance, weight gain, hair thinning, abdominal discomfort, neck pressure, neck fullness, neck discomfort, difficulty swallowing pills, difficulty swallowing liquids, difficulty swallowing solids}}{{Patient admits to heat intolerance, weight loss, pretibial edema, neck pressure, neck fullness, neck discomfort}}{{Patient denies any hypothyroidism or hyperthyroidism signs and symptoms*}}Patient admits to {{taking* not taking}} their thyroid medication faithfully.Labs: TSH 0.23 was 0.39 was 5.62 was 13.9 T4 1.32 was 1.16 was 1.9 was 1.23 T3 78was 78 was 71 was 72 all questions answered in details Megan Parekh M.D [address] [place] [address], [address], [address], [facility] & [place] 06/04/2023 13:13:58 09/17/2023 text/html Patient follows up for their {{hypothyroidism* hyp erthyroidism}}managem ent. s/p total thyroidectomy for multinodular goiter in 2020.{{Patient admits to cold intolerance, weight gain, hair thinning, abdominal discomfort, neck pressure, neck fullness, neck discomfort, difficulty swallowing pills, difficulty swallowing liquids, difficulty swallowing solids}}{{Patient admits to heat intolerance, weight loss, pretibial edema, neck pressure, neck fullness, neck discomfort}}{{Patient denies any hypothyroidism or hyperthyroidism signs and symptoms*}}Patient admits to {{taking* not taking}} their thyroid medication faithfully.Labs: TSH 0.04 was 0.23 was 0.39 was 5.62 T4 1.17 was 1.32 T3 89 was 78 all questions answered in details Megan Parekh M.D [address] [place] [address] Drive, [address], [id number] [place] [address] 09/17/2023 13:33:54 12/17/2023 text/html Patient follows up for their {{hypothyroidism* hyp erthyroidism}}managem ent. s/p total thyroidectomy for multinodular goiter in 2020.{{Patient admits to cold intolerance, weight gain, hair thinning, abdominal discomfort, neck pressure, neck fullness, neck discomfort, difficulty swallowing pills, difficulty swallowing liquids, difficulty swallowing solids}}{{Patient admits to heat intolerance, weight loss, pretibial edema, neck pressure, neck fullness, neck discomfort}}{{Patient denies any hypothyroidism or hyperthyroidism signs and symptoms*}}Patient admits to {{taking* not taking}} their thyroid medication faithfully.Labs: TSH 4.76 was 0.04 was 0.23 was 0.39 T4 1.02 was 1.17 was 1.32 T3 98 was 89 was 78 patient states she feels great. all questions answered in details Megan Parekh M.D [address] [place] [address], [address], [address]Community [facility] 12/17/2023 13:11:11 02/18/2024 text/html Patient follows up for their {{hypothyroidism* hyp erthyroidism}}managem ent. s/p total thyroidectomy for multinodular goiter in 2020.{{Patient admits to cold intolerance, weight gain, hair thinning, abdominal discomfort, neck pressure, neck fullness, neck discomfort, difficulty swallowing pills, difficulty swallowing liquids, difficulty swallowing solids}}{{Patient admits to heat intolerance, weight loss, pretibial edema, neck pressure, neck fullness, neck discomfort}}{{Patient denies any hypothyroidism or hyperthyroidism signs and symptoms*}}Patient admits to {{taking* not taking}} their thyroid medication faithfully.Labs: TSH 2.55 was 4.76 T4 1.15 was 1.02 T3 83 was 98 patient states she feels great. all questions answered in details Megan Parekh M.D [address] [place] [address] Drive, [address], [address] 02/24/2024 09:01:00 05/19/2024 text/html Patient follows up for their {{hypothyroidism* hyp erthyroidism}}managem ent. s/p total thyroidectomy for multinodular goiter in 2020.{{Patient admits to cold intolerance, weight gain, hair thinning, abdominal discomfort, neck pressure, neck fullness, neck discomfort, difficulty swallowing pills, difficulty swallowing liquids, difficulty swallowing solids}}{{Patient admits to heat intolerance, weight loss, pretibial edema, neck pressure, neck fullness, neck discomfort}}{{Patient denies any hypothyroidism or hyperthyroidism signs and symptoms*}}Patient admits to {{taking* not taking}} their thyroid medication faithfully.Labs: TSH 1.37 was 2.55 was 4.76 T4 1.42 was 1.15 was 1.02 T3 82 was 83 was 98 patient states she feels great. all questions answered in details Megan Parekh M.D [address] [place] [address], [address], [place], [address], [facility] - [facility] [place] 05/20/2024 08:15:45 OBGyn Episode No OBEpisode recorded.
== END ==
LOC: SL 09:52
PROVIDERS: PCP Family Medicine; Visit Provider Internal Medicine Pulmonary Disease
DX: G47.33 Obstructive sleep apnea (adult) (pediatric) (principal); R40.0 Somnolence
CPT/HCPCS: G0399

== ENCOUNTER 2024-10-01 11:22 | Outpatient (CLI) | payer MEDICARE, SELFPAY ==
[2024-10-01 16:57] LABS: Microalbumin/Creatinine Ratio 44.6
[2024-10-01 17:00] LABS: Creatinine,Urine Random 67 mg/dL (Not Estab.)
--- OUTSIDE RECORDS SUMMARY | 2024-10-02 12:28 | XMS_ITS | Data Portability ---
Author Organization [facility] [place] [facility] ADMIN Address [address] [place] [id number] Assessment No assessment recorded. Plan of Treatment Reminders Order Date Submit Date Provider Last Modified By Organization Details Last Modified Time Details Appointments OV NEW 15 2024 02:00P Vesna Bhandari Jr, MD Not available Not available Not available OV EST 15 2024 01:00P Vesna Parekh M.D Not available Not available Not available Lab TSH + free T4, serum 2023 024 [facility] (Lab Registration) , [address] [place] [address] [place], [address], 05/19/2024 14:10:37 T3, total, serum 2023 024 [facility] (Lab Registration) , [address] [place] [address] [place], [address], 05/19/2024 14:10:37 TSH + free T4, serum 2023 024 dennise [facility] (Lab Registration) , [address] [place] [address] [place], [address], 02/19/2024 08:34:34 T3, total, serum 2023 024 ANGELO [facility] (Lab Registration) , [address] [place] [address] [place], [address], 05/15/2024 06:12:58 TSH + free T4, serum 2023 024 [facility] (Lab Registration) , [address] [place] [address] [place], [address], 12/17/2023 13:12:29 T3, total, serum 2023 024 [facility] (Lab Registration) , [address] [place] [address] [place], [address], 02/07/2024 13:12:09 TSH + free T4, serum 2023 024 [facility] [place] [facility] (Lab Registration) , [address] [place] [address] [place], [address], 09/17/2023 13:19:01 T3, total, serum 2023 024 [facility] (Lab Registration) , [address] [place] [address] [place], [address], 12/13/2023 03:38:24 TSH + free T4, serum 2023 024 [facility] (Lab Registration) , [address] [place] [address] [place], [address], 06/04/2023 13:14:57 T3, total, serum 2023 024 [facility] (Lab Registration) , [address] [place] [address] [place], [address], 09/13/2023 11:19:12 Referral None recorded. Procedures None recorded. Surgeries None recorded. Imaging None recorded. Medication Orders levothyro xine 75 mcg tablet 2023 024 [facility], [address], [place], [address], 05/19/2024 13:18:57 levothyro xine 75 m[address] [facility], [address], [place], [address], 02/19/2024 08:34:34 levothyro xine 75 mcg tablet 2023 024 [facility], [address], [place], [address], 12/17/2023 13:10:46 levothyro xine 75 mcg tablet 2023 024 [facility], [address], [place], [address], 09/17/2023 13:17:41 levothyro xine 88 mcg tablet 2023 024 dennise [facility], [address], [place], [address], 09/17/2023 13:17:42 Patient TargetsNo targets recorded. Patient InstructionsNo instructions recorded. Reason for Referral None Reported. Results Created Date Observation Date Name Description Value Unit Range Abnormal Flag Note LastModifiedBy Organization Detail LastModifiedTime 05/29/2005/29/2023 T4 FREE T4 free 1.32 NG/dL 0.78-2 .19 Not Available [facility] (Pre[facility]Op [facility]) [address] [place] [address] [place], [address], 05/29/2023 16:11:41 05/29/2005/29/2023 T4 FREE note Unles s other ramirez noted testi ng perfo rmed at: [facility] [address] [place] [address] Guero laguerre MD Not Available [facility] ([facility]Op [facility]) [address] [place] [address] [place], [address], 05/29/2023 16:11:41 05/29/20 23 05/29/2023 TSH thyroid stim hormone 0.23 uIU/m L 0.465- 4.68 low Not Available [facility] ([facility]Op [facility]) [address] [place] [address] [place], [address], 05/29/2023 16:54:37 05/29/20 23 05/29/2023 TSH note Unles s other ramirez noted testi ng perfo [facility]med at: [facility] [address] [place] [address] Guero laguerre MD Not Available [facility] (Pre[facility]Op [facility]) [address] [place] [address] [place], [address], 05/29/2023 16:54:37 05/29/20 23 05/29/2023 T3 TOTAL note Unles s other ramirez noted testi ng perfo rmed at: [facility] [address] [place] [address] Guero laguerre MD Not Available [facility] (Pre[facility]Op [facility]) [address] [place] [address] [place], [address], 05/30/2023 08:16:33 05/29/20 23 05/30/2023 T3 TOTAL triiodothyro nine (T3) 78 NG/dL 71-180 Perfo rmed at: - [facility] [address] [place], [place] [address] Lab Direc tor: Nicola jacobsen PhD, Phone : [phone] Not Available [facility] (Pre[facility]Op [facility]) [address] [place] [address] [place], [address], 05/30/2023 08:16:33 09/12/19 24 09/12/2023 T4 FREE T4 free 1.17 NG/dL 0.78-2 .19 Not Available [facility] (Pre[facility]Op [facility]) [address] [place] [address] [place], [address], 09/12/2023 11:00:44 09/12/19 24 09/12/2023 T4 FREE note Unles s other ramirez noted testi ng perfo rmed at: [facility] [address] [place] [address] Guero laguerre MD Not Available [facility] ([facility]Op [facility]) [address] [place] [address] [place], [address], 09/12/2023 11:00:44 09/12/19 24 09/12/2023 TSH thyroid stim hormone 0.04 uIU/m L 0.465- 4.68 low Not Available [facility] ([facility]Op [facility]) [address] [place] [address] [place], [address], 09/12/2023 11:16:14 09/12/19 24 09/12/2023 TSH note Unles s other ramirez noted testi ng perfo rmed at: [facility] [address] [place] [address] Guero laguerre MD Not Available [facility] ([facility]) [address] [place] [address] [place], [address], 09/12/2023 11:16:14 09/12/19 24 09/12/2023 T3 TOTAL note Unles s other ramirez noted testi ng perfo rmed at: [facility] [address] [place] [address] Guero laguerre MD Not Available [facility] ([facility]) [address] [place] [address] [place], [address], 09/13/2023 11:19:12 09/12/19 24 09/13/2023 T3 TOTAL triiodothyro nine (T3) 89 NG/dL 71-180 Perfo [place]med at: - [place] [address] Lab Direc tor: Nicola jacobsen PhD, Phone : [phone] Not Available [facility] ([facility]) [address] [place] [address] [place], [address], 09/13/2023 11:19:12 12/12/19 24 12/12/2023 T4 FREE T4 free 1.02 NG/dL 0.78-2 .19 Not Available [facility] ([facility]) [address] [place] [address] [place], [address], 12/12/2023 11:29:29 12/12/19 24 12/12/2023 T4 FREE note Unlfide s other ramirez noted testi ng perfo rmed at: [facility] [address] [place] [address] Guero laguerre MD Not Available [facility] ([facility]) [address] [place] [address] [place], [address], 12/12/2023 11:29:29 12/12/19 24 12/12/2023 TSH thyroid stim hormone 4.76 uIU/m L 0.465- 4.68 high Not Available [facility] ([facility]Op [facility]) [address] [place] [address] [place], [address], 12/12/2023 11:52:55 12/12/19 24 12/12/2023 TSH note Joan s other raimrez noted testi ng perfo rmed at: [facility] [address] [place] [address] Guero laguerre MD Not Available [facility] ([facility]) [address] [place] [address] [place], [address], 12/12/2023 11:52:55 12/12/19 24 12/12/2023 T3 TOTAL note Joan s other ramirez noted testi ng perfo rmed at: [facility] [address] [place] [address] Guero laguerre MD Not Available [facility] ([facility]) [address] [place] [address] [place], [address], 12/13/2023 03:38:24 12/12/19 24 12/13/2023 T3 TOTAL triiodothyro nine (T3) 98 NG/dL 71-180 Perfo rmed at: CB - [facility] [address] [place] [address] [facility] Lab Direc tor: Nicola jacobesn PhD, Phone : [phone] Not Available [facility] ([facility]) [address] [place] [address] [place], [address], 12/13/2023 03:38:24 02/06/20 24 02/06/2024 T4 FREE T4 free 1.15 NG/dL 0.78-2 .19 Not Available [facility]) [address] [place] [address] [place], [address], 02/06/2024 10:58:36 02/06/20 24 02/06/2024 T4 FREE note Unles s other ramirez noted testi ng perfo rmed at: [facility] [address] [place] [address] Guero laguerre MD Not Available [facility]) [address] [place] [address] [place], [address], 02/06/2024 10:58:36 02/06/20 24 02/06/2024 TSH thyroid stim hormone 2.55 uIU/m L 0.465- 4.68 Not Available [facility] ([facility]) [address] [place] [address] [place], [address], 02/06/2024 11:18:44 02/06/20 24 02/06/2024 TSH note Unles s other ramirez noted testi ng perfo rmed at: [facility] [address] [place] [address] Guero laguerre MD Not Available [facility]) [address] [place] [address] [place], [address], 02/06/2024 11:18:44 02/06/20 24 02/06/2024 T3 TOTAL note Unles s other ramirez noted testi ng perfo rmed at: [facility] [address] [place] [address] Guero laguerre MD Not Available [facility]) [address] [place] [address] [place], [address], 02/07/2024 13:12:09 02/06/20 24 02/07/2024 T3 TOTAL triiodothyro nine (T3) 83 NG/dL 71-180 Perfo rmed at: - [facility] n [address] [place] [address] Lab Direc tor: Nicola jacobsen PhD, Phone : [phone] Not Available [facility] ([facility]) [address] [place] [address] [place], [address], 02/07/2024 13:12:09 05/14/20 24 05/14/2024 T4 FREE T4 free 1.42 NG/dL 0.78-2 .19 Not Available [facility]) [address] [place] [address] [place], [address], 05/14/2024 11:48:55 05/14/20 24 05/14/2024 T4 FREE note Joan s other ramirez noted testi ng perfo rmed at: [facility] [address] [place] [address] Guero laguerre MD Not Available [facility] ([facility]) [address] [place] [address] [place], [address], 05/14/2024 11:48:55 05/14/20 24 05/14/2024 TSH thyroid stim hormone 1.37 uIU/m L 0.465- 4.68 Not Available [facility] ([facility]) [address] [place] [address] [place], [address], 05/14/2024 12:15:21 05/14/20 24 05/14/2024 TSH note Unles s other ramirez noted testi ng perfo rmed at: [facility] [address] [place] [address] Guero laguerre MD Not Available [facility]) [address] [place] [address] [place], [address], 05/14/2024 12:15:21 05/14/20 24 05/14/2024 T3 TOTAL note Unles s other ramirez noted testi ng perfo rmed at: [facility] [address] [place] [address] Guero laguerre MD Not Available [facility] ([facility]) [address] [place] [address] [place], [address], 05/15/2024 06:12:58 05/14/20 24 05/15/2024 T3 TOTAL triiodothyro nine (T3) 82 NG/dL 71-180 Perfo rmed at: CB - [facility] [address] [facility], [place] [address] Lab Direc tor: Nicola jacobsen PhD, Phone : [phone] Not Available [facility] ([facility]) [address] [place] [address] [place], [address], 05/15/2024 06:12:58 Result Notes None recorded. Problems Name Problem SNOMED Code Status Onset Date Resolution Date Notes Provider Name and Address Organization Details Recorded Time Hypothyroid ism 25046263 Active 2021 Trinidad benites, [place] - [facility] [place] [facility] [place] 2 09:19:55 Essential hypertensio n 34717011 Active 2021 Trinidad benites, [place] - [facility] [place] [facility] [place] 2 09:20:01 Asthma 395463007 Active 2021 Trinidad benites, [place] - [facility] [place] [facility] [place] 2 09:20:10 Seasonal allergy 916118703 Active 2021 Trinidad Jain null, [place] - [facility] [place] [facility] [place] 2 09:20:27 Gastroesoph ageal reflux disease 348598396 Active 2021 Trinidad benites, [place] - [facility] [place] & [place] 2 09:20:32 Type 2 diabetes mellitus 12462440 Active 2021 Trinidad benites, [place] - [facility] [place] [facility] [place] 2 09:21:02 Hyperlipide katie 17834034 Active 2021 Trinidad Jain null[place] - [facility] [place] [facility] [place] 2 09:21:19 Osteoarthri tis 726311811 Active 2021 Trinidad Jain null, [place] [facility] [place] [facility] [place] 2 09:21:25 Rheumatoid arthritis 23952709 Active 2021 Trinidad Gilangela null, [place] - [facility] [place] [facility] [place] 2 09:21:30 Fibromyalgi a 083120392 Active 2021 Trinidad Jain null, [place] - [facility] [place] [facility] [place] 2 09:21:39 Tuberculosi s 29178801 Completed 202103/09/2022 Trinidad Albrightangela null, [place] - [facility] [place] [facility] [place] 2 09:21:53 Problem Notes None recorded. Procedures Surgical History Date Name Laterality Status Provider Name and Address Organization Details Recorded Time 02/02/20 21 Thyroidectomy completed Trinidad Jain [place] - [facility] [place] [facility] [place] 03/09/2022 09:26:34 operation on urinary bladder completed Trinidad Gilangela ARABELLA - [facility] - [place] [facility] [place] 03/09/2022 09:25:09 Tubal Ligation completed Trinidadvilma Albrightangela [place] - [facility] [place] [facility] [place] 03/09/2022 09:25:20 Cholecystectomy completed Trinidad Susy ARABELLA - [facility] - [place] [facility] [place] 03/09/2022 09:25:32 Unlisted procedure nose completed Trinidadvilma Albrightangela [place] - [facility] [place] [facility] [place] 03/09/2022 09:26:07 hysterectomy completed Trinidad Gilangela [place] - [facility] [place] [facility] [place] 03/09/2022 09:26:20 Imaging Results None recorded. Procedure Notes None recorded. Medical Equipment None Reported. Allergies Allergen ID Allergen Name Allergen Category Reaction Reaction Severity Criticality Documentation Date Start Date Code Code System Note Provider Name and Address Organization Details Recorded Time 541577 amoxicill in medicatio n Not available Not available Not available 09/17/2023 723 RxNorm Shantell benites, [place] [facility] & [place] 4 13:14:25 [address]7072 fenofibra te medicatio n itching Not available Not available 03/09/2022 8703 RxNorm ARABELLA Zavala [facility] & [place] 2 09:19:02 89888 red yeast rice food,medi cation itching Not available Not available 03/09/2022 88148 0 RxNorm ARABELLA Zavala [facility] & [place] 2 09:19:17 Medications Name Sig Start Date [...] Updated DateTime 4 160.02 cm 26.7 kg/m2 70285.4 5 g 64 /min 98 % 98 % 97.1 [degF] 138 mm[Hg] 71 mm[Hg] Shantell ESTEBAN [facility] & [place] 4 13:07:59 Date Recorded Body height Body mass index (BMI) Body weight Heart rate Oxygen saturation Oxygen saturation in Arterial blood by Pulse oximetry Body temperature Systolic blood pressure Diastolic blood pressure Provider Name and Address Organization Details Last Updated DateTime 4 160.02 cm 25.5 kg/m2 42504.5 8 g 72 /min 97 % 97 % 96.7 [degF] 114 mm[Hg] 65 mm[Hg] Shantell ESTEBAN [facility] & [place] 4 13:14:00 Date Recorded Body height Body mass index (BMI) Body weight Heart rate Oxygen saturation Oxygen saturation in Arterial blood by Pulse oximetry Body temperature Systolic blood pressure Diastolic blood pressure Provider Name and Address Organization Details Last Updated DateTime 4 160.02 cm 27.1 kg/m2 97167.3 5 g 77 /min 97 % 97 % 96.6 [degF] 107 mm[Hg] 63 mm[Hg] Shantell ESTEBAN [facility] & [place] 4 13:07:10 Date Recorded Body height Body mass index (BMI) Body weight Heart rate Oxygen saturation Oxygen saturation in Arterial blood by Pulse oximetry Body temperature Systolic blood pressure Diastolic blood pressure Provider Name and Address Organization Details Last Updated DateTime 4 160.02 cm 27.8 kg/m2 56179.7 2 g 65 /min 97 % 97 % 96.2 [degF] 125 mm[Hg] 73 mm[Hg] Shantell ESTEBAN [facility] & [place] 4 13:15:04 Date Recorded Body height Body mass index (BMI) Body weight Heart rate Oxygen saturation Oxygen saturation in Arterial blood by Pulse oximetry Systolic blood pressure Diastolic blood pressure Provider Name and Address Organization Details Last Updated DateTime 4 160.02 cm 28 kg/m2 18254.8 8 g 78 /min 99 % 99 % 115 mm[Hg] 77 mm[Hg] Adina ESTEBAN [facility] & [place] 4 13:03:26 Social History None recorded. Functional [...] available 03/09/2022 09:24:47 Medical History Condition Response Diabetes Y Allergies/Hayfever Y Arthritis Y Hypothyroidism Y High Cholesterol Y Fibromyalgia Y Hypertension Y Gynecological HistoryNo gynecological history recorded. Obstetrics History GPAL:G 0 P 0 0 0 0 Immunizations Vaccine Type Date Status Note Provider Nam e and Address Organization Details Recorded Time COVID-19, mRNA, LNP-S, PF, 100 mcg/0.5mL dose or 50 mcg/0.25mL dose 07/07/2020 completed ARABELLA Zavala [facility] & [place] 03/09/2022 09:19:35 COVID-19, mRNA, LNP-S, PF, 100 mcg/0.5mL dose or 50 mcg/0.25mL dose 08/04/2020 completed ARABELLA Zavala - [facility] - [place] & [place] 03/09/2022 09:19:40 Past Encounters Encounter ID Performer Location Encounter Start Date Encounter Closed Date Diagnosis/Indication Diagnosis SNOMED-CT Code Diagnosis ICD10 Code Diagnosis Note [id number] Floyd Ludwig [address] [address] 04/17/2022 13:04:46 04/17/2022 15:11:56 Hypothyroidism 81466534 E03.9 Acquired hypothyroidism 768865903 E03.9 Gastroesop hageal reflux disease 352214440 K21.9 [id number] [facility] [place] [address] 05/22/2022 13:17:12 05/22/2022 16:52:05 Acquired hypothyroidism 563159707 E03.9 [id number] Floyd Ludwig [address] [address] 10/30/2022 13:03:04 10/30/2022 13:27:53 Acquired hypothyroidism 530476600 E03.9 [id number] Floyd Ludwig [address] [address] 01/01/2023 14:23:03 01/01/2023 14:53:19 Acquired hypothyroidism 634926932 E03.9 [id number] Floyd Ludwig [address] [address] 04/09/2023 13:39:04 04/09/2023 14:21:34 Acquired hypothyroidism 207738705 E03.9 [id number] Floyd Ludwig [address] [address] 06/04/2023 12:51:53 06/04/2023 13:42:12 Acquired hypothyroidism 979014964 E03.9 [id number] Megan Parekh M.D [facility] [address] [place] [address] 09/17/2023 13:09:00 09/17/2023 13:19:26 Acquired hypothyroidism 620532196 E03.9 [id number] [facility] [address] [place] [address] 12/17/2023 12:45:09 12/17/2023 13:14:49 Acquired hypothyroidism 716538837 E03.9 [id number] Megan Parekh M.D [facility] [address] [place] [address] 02/18/2024 12:57:56 02/18/2024 13:30:27 Acquired hypothyroidism 800125113 E03.9 [id number] [facility] [address] [place] [address] 05/19/2024 12:55:51 05/19/2024 13:19:07 Acquired hypothyroidism 750006827 E03.9 Health Concerns Section Related Observation LastModified by Organization Detai ls LastModified Time None Recorded Concern Status LastModified by Organization Details LastModified Time None Recorded Advance Directives Directive None Recorded Payers Encounter Date Sequence Insurance Name Policy Number Policy Barbour Covered Member ID Barbour Member ID Guarantor Name 06/04/2023 1 [employer] (MEDICARE REPLACEMENT/ ADVANTAGE - PPO) Kathleen Dennis Livingood [id number] Kathleen Dennis Livingood 09/17/2023 1 [employer] (MEDICARE REPLACEMENT/ ADVANTAGE - PPO) Kathleen Dennis Livingood [id number] Kathleen Dennis Livingood 12/17/2023 1 [employer] (MEDICARE REPLACEMENT/ ADVANTAGE - PPO) Kathleen Dennis Livingood [id number] Kathleen Dennis Livingood 02/18/2024 1 [employer] (MEDICARE REPLACEMENT/ ADVANTAGE - PPO) Kathleen Dennis Livingood [id number] Kathleen Sonny Ordonez 05/19/2024 1 [employer] (MEDICARE REPLACEMENT/ ADVANTAGE - PPO) Kathleen Ordonez [id number] Kathleen Ordonez Notes Date Note Type Note [...] questions answered in details Megan Parekh M.D [address] [place] [address], [address], [place], [address], [facility] & [place] 06/04/2023 13:13:58 09/17/2023 text/html Patient follows up [...] questions answered in details Megan Parekh M.D [address] [place] [address] Drive, [address], [place], [address] [place] [address] 09/17/2023 13:33:54 12/17/2023 text/html Patient follows up [...] questions answered in details Megan Parekh M.D [address] [place] [address], [address], [address] 12/17/2023 13:11:11 02/18/2024 text/html Patient follows up [...] questions answered in details Megan Parekh M.D [address] [place] [address] Drive, [address], [place], [address] 02/24/2024 09:01:00 05/19/2024 text/html Patient follows up [...] questions answered in details Megan Parekh M.D [address] [place] [address], [address], [place], [address], [facility] - [facility] & [place] 05/20/2024 08:15:45 OBGyn Episode No OBEpisode recorded.
== END 2024-10-01 23:59 | disposition home or self-care (01) ==
LOC: LAB.DROPOF 10-02 12:27
PROVIDERS: PCP Family Medicine; Visit Provider Family Medicine
DX: E11.9 Type 2 diabetes mellitus without complications (principal)
CPT/HCPCS: 82043; 82570

== ENCOUNTER 2024-11-24 09:32 | Outpatient (CLI) | payer MEDICARE, SELFPAY ==
--- OUTSIDE RECORDS SUMMARY | 2024-11-24 09:35 | XMS_ITS | Clinical Summary ---
Author Organization [facility] Address [address] [place] [address] Care Team Providers Care Dip Painter Name Role Phone Audi Poole MD Primary Care Provider Lucía vailable Allergies Active Allergy Reactions Criticality Noted Date Comments Grass Pollen(K-O-R-T-Swt Derik) Unknown - Patient states they do not know rxn details Low 03/07/2022 Methotrexate Rash Low 03/07/2022 Medications carvedilol (Coreg) 3.125 MG tablet TAKE 1 TABLET BY MOUTH TWICE DAILY WITH FOOD/MEAL FOR HYPERTENSION 2 Active busPIRone (Buspar) 10 MG tablet Take 10 mg by mouth 2 (two) times a day. 2 Active estradiol (Estrace) 0.1 MG/GM vaginal cream 1 (one) time each day. 6 Active famotidine (Pepcid) 20 MG tablet 6 Active fluconazole (Diflucan) 150 MG tablet TAKE 1 TABLET BY MOUTH ONCE DAILY FOR 3 DAYS 2 Active FLUoxetine (PROzac) 20 MG capsule 1 (one) time each day. 2 Active gemfibrozil (Lopid) 600 MG tablet 1 (one) time each day. 2 Active hydroxychloroqu ine (Plaquenil) 200 MG tablet 2 (two) times a day. 2 Active levothyroxine (Synthroid, Levoxyl) 50 MCG tablet TAKE 1 TABLET BY MOUTH ONCE DAILY IN THE MORNING ON AN EMPTY STOMACH 2 Active losartan (Cozaar) 25 MG tablet Take by mouth 1 (one) time each day. 2 Active lovastatin (Mevacor) 20 MG tablet TAKE 3 TABLETS BY MOUTH ONCE DAILY WITH FOOD FOR 90 DAYS 2 Active metFORMIN (Glucophage) 1000 MG tablet Take 500 mg by mouth 2 (two) times a day with meals. 2 Active montelukast (Singulair) 10 MG tablet Take 10 mg by mouth 1 (one) time each day in the evening. 2 Active nitrofurantoin, macrocrystal-mo nohydrate, (Macrobid) 100 MG capsule TAKE 1 CAPSULE BY MOUTH TWICE DAILY WITH FOOD/MEAL 2 Active pantoprazole (Protonix) 40 MG EC tablet Take 40 mg by mouth 1 (one) time each day. 2 Active traZODone (Desyrel) 50 MG tablet Take 100 mg by mouth every night. Active linaCLOtide (Linzess) 145 MCG capsule Take 145 mcg by mouth 1 (one) time each day. Active diphenhydrAMINE (BENADryl) 50 MG tablet Take 50 mg by mouth at night if needed for sleep. Active psyllium (Metamucil) 58.12 % packet Take 1 packet by mouth 1 (one) time each day. Active methIMAzole (Tapazole) 10 MG tablet Take 1 tablet by mouth every 12 (twelve) hours. Active polyethylene glycol (Miralax) 17 GM/SCOOP powder take 1 packet by oral route every day mixed with 8 oz. water, juice, soda, coffee or tea Active diclofenac (Voltaren) 1 % topical gel Apply 2 g topically every 12 (twelve) hours. Active Active Problems Problem Noted Date Diagnosed Date Eustachian tube dysfunction, bilateral 8 Seasonal allergies 10/14/2017 Left epiphora 10/19/2015 Nldo, acquired (nasolacrimal duct obstruction), bilateral 10/19/2015 Excessive tearing 10/03/2015 Chronic serous otitis media 09/19/2015 Unilateral sensorineural hearing loss 08/18/2015 Asthma 08/01/2015 GERD (gastroesophageal reflux disease) 6 HTN (hypertension) 08/01/2015 Thyroid disorder 08/01/2015 Family History Medical History Relation Name Comments Diabetes Maternal Grandmother Heart disease Mother Other cancer Mother Relation Name Status Comments Maternal Grandmother Mother Social History Tobacco Use Types Packs/Day Years Used Date Smoking Tobacco: Never Smokeless Tobacco: Never Tobacco Cessation:Counseling Given: Not Answered Alcohol Use Standard Drinks/Week Comments No 0 (1 standard drink = 0.6 oz pur e alcohol) Comments Unknown Sex and Gender Information Value Date Recorded Sex Assigned at Not on file Legal Sex Female 7:19 PM EDT Gender Identity Not on file Sexual Orientation Not on file Last Filed Vital Signs Vital Sign Reading Time Taken Comments Blood Pressure 169/92 02/23/2022 3:25 PM EDT Pulse 77 02/23/2022 3:20 PM EDT Temperature 36 C (96.8 F) 02/23/2022 2:31 PM EDT Respiratory Rate 13 02/23/2022 3:20 PM EDT Oxygen Saturation 99% 02/23/2022 3:20 PM EDT Inhaled Oxygen Concentration - - Weight 65.9 kg (145 lb 4.5 oz) 02/23/2022 11:51 AM EDT Height 157.5 cm (5' 2 ) 02/23/2022 11:51 AM EDT Body Mass Index 26.57 02/23/2022 11:51 AM EDT Plan of Treatment Health Maintenance Due Date Last Done Comments [facility]-Depression Screening 1950 [facility]-Hepatitis C Screening 1950 [facility]Medicare Annual Wellness (AWV) 1950 [facility]-Infant/Child/Adol SDOH Screenings 1950 [facility]- SDOH Screenings 1968 [facility]-Adult SDOH Screenings 1968 [facility]-DTaP,Tdap,and Td Vaccines (1 - Tdap) 1969 CT Colonography 1995 Colonoscopy 1995 FIT-DNA 1995 FIT 1995 FOBT 1995 Sigmoidoscopy 1995 [facility]-Colorectal Cancer Screening 1995 [facility]-Breast Cancer Screening 2000 [facility]-RSV Vaccine: 60+ Years or (1 - Risk 60-74 years 1-dose series) 2010 [facility]-Bone Density Scan 05/17/2023 05/17/2021 [id number] Vaccine ( season) 2024 05/01/2021, 04/20/2021, 08/04/2020, Additional history exists [facility]-Influenza Vaccine (Season Ended) 2025 04/20/2022, 04/06/2021, 04/03/2021, Additional history exists [facility]-Pneumococcal Vaccine: 50+ Years Completed 05/22/2019, 05/18/2018 [facility]-Zoster Vaccines Completed 12/25/2020, [facility]-Obesity Intervention Completed 03/07/2022 HPV Vaccines Aged Out No longer eligi ble based on patient's age to complete this topic [facility]-HIB Vaccines Aged Out No longer e ligible based on patient's age to complete this topic [facility]-Hepatitis A Vaccines Aged Out No longer eligible based on patient's age to complete this topic [facility]-IPV Vaccines Aged Out No longer e ligible based on patient's age to complete this topic [facility]-Rotavirus Vaccines Aged Out No lo nger eligible based on patient's age to complete this topic Medical Devices Implanted Type Area Materials Director Device Identifier Shelf Expiration Date Model / Serial / Lot Tube [employer] St[employer] 4.5x20 - [id number] - [id number] Implanted:Qty : 1 on 02/23/2022 by Asa Thacker MD at [facility] Prosthesis Other [id number] 08/25/2022 [id number] / [id number] / Tubes Margaret Davis 0.6mm X 150mm - [id number] Implanted: by Asa Thacker MD at [facility] (Quantity not on file) [id number] / / Insurance [facility] MEDIC[facility] Care Teams Dip Painter Relationship Specialty Start Date End Date Audi Poole MD PCP - General Family Medicine 01/17/22
--- OUTSIDE RECORDS SUMMARY | 2024-11-24 09:35 | XMS_ITS | Clinical Summary ---
Author Organization [facility] Address [address] [place] [address] Phone Care Team Providers Care Advanced Seal Delivery System Name Role Phone Chuck COYLE, Иван Foster [phone] [ ] Conditions or Problems Problem Name Problem Code Onset Date Status Entry Date Provider Comment Standard Description Annotate Nausea 827119888 (SNOMED CT) Active Kike Woods MD Nausea Adverse drug reaction 69923993 (SNOMED CT) Active Kike Woods MD Adverse reaction to drug Elevated LFTs 787493374 (SNOMED CT) Active Kike Woods MD Liver function tests outside reference range 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 Geovanna Armendariz 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, 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 Gosia Juares Rheumatoid arthritis with rheumatoid factor of multiple sites without organ or systems involvement + QuantiFERON GOLD-TB skin test w/o active TB R76.12 (ICD-10-CM) Active Gosia Juares Nonspecific reaction to cell mediated immunity measurement of gamma interferon antigen response without active tuberculosis Medications Medication Instructions Start Date Stop Date Generic Name NDC Provider ZOFRAN ODT 4 MG ORAL TABLET DISINTEGRATING Take 1 by mouth twice a day as needed for nausea ONDANSETRON 06752960991 Иван Woods MD RIFADIN 300 MG ORAL CAPSULE Take 1 by mouth twice a day RIFAMPIN 92178897925 Иван Woods MD RIFAMPIN 300MG CAP TAKE 1 CAPSULE BY MOUTH TWICE DAILY RIFAMPIN 13157975456 Иван Woods MD ZOFRAN 4 MG ORAL TABLET one po q 6 hrs as needed ONDANSETRON HCL 25777674396 Kike Woods MD RIFADIN 300 MG ORAL CAPSULE Take 2 by mouth daily 10/09 RIFAMPIN 65672635923 Иван Woods MD RIFADIN 300 MG ORAL CAPSULE one po bid RIFAMPIN 68015607870 Иван Woods MD CETIRIZINE HCL 10 MG TABS Take 1 tablet by mouth daily CETIRIZINE HCL 99298205334 Geovanna S DIPHENHYDRAMINE HCL 25 MG TABS Take one (1) tablet by mouth twice a day DIPHENHYDRAMINE HCL 11923063790 Geovanna S METFORMIN HCL 500 MG TABS Take one (1) tablet by mouth twice a day METFORMIN HCL 12082393099 Geovanna S CARVEDILOL 3.125 MG TABS Take one (1) tablet by mouth twice a day CARVEDILOL 81599442349 Geovanna S MONTELUKAST SODIUM 10 MG TABS Take 1 tablet by mouth daily MONTELUKAST SODIUM 20531841983 Geovanna S LEVO-T 50 MCG TABS Take 1 tablet by mouth daily LEVOTHYROXINE SODIUM 32865624149 Geovanna S LOVASTATIN 20 MG TABS Take one (1) tablet by mouth twice a day LOVASTATIN 47484857226 Geovanna S FLUOXETINE HCL 20 MG TABS Take 1 tablet by mouth daily FLUOXETINE HCL 33277587718 Geovanna S [facility] FISH OIL 1200 MG CAPS Take 1 tablet by mouth daily OMEGA-3 FATTY ACIDS 35314976211 Geovanna S OMEPRAZOLE 40 MG CPDR Take 1 tablet by mouth daily OMEPRAZOLE 47940608796 Geovanna S Medications Administered No information available. Allergies, Adverse Reactions, Alerts Allergy Name Reaction Description Start Date Severity Statu s Provider TREE AND SHRUB POLLEN Critical Active Radha [place] GRASS POLLEN Critical Active Radha [place] METHOTREXATE rash Mild Active Radha Bria Results Date Name Value Unit Range Flag Description Office Visit: 4 MEDS REVIEW Done Documenta tion of current medications (procedure) ORALTOBACUSE Never Tobacco smoking status SMOK STATUS Never smoker Tobacco smoking status Lab Report: CBC WITH AUTO DI FFERENTIAL IMMATUREGRAN 0.02 10*3/MM3 0.00-0.03 Immature granulocytes [#/volume] in Blood BASO# 0.05 10*3/mm3 0.00-0.20 Basophils [#/vol ume] in Blood EOS ABSLT 0.46 10*3/uL 0.00-0.30 H Eosinophi ls [#/volume] in Blood MONOSCT AUTO 0.90 10*3/uL 0.00-1.00 Monocy leann [#/volume] in Blood by Automated count LYMPHCT AUTO 3.39 10*3/mm3 0.60-4.80 Lymph ocytes [#/volume] in Blood by Automated count ABS NEUTROPH 4.52 10*3/uL 1.50-8.30 Neutro phils [#/volume] in Blood IMM GRANU % 0.2 % 0.0-0.6 Immature granulocytes/100 leukocytes in Blood [id number] 0.5 % 0.0-1.0 GE use only - for [employer] import when terms are not otherwise specified % EOS AUTO 4.9 % 0.0-3.0 H Eosinophil s/100 leukocytes in Blood by Automated count MONOCYTE BF 9.7 % 0.0-12.0 monocyte s as percent of body fluid leukocytes LYMPHOCY BF 36.4 % 24.0-44.0 lymphoc ytes as percent of body fluid leukocytes PMN % 48.5 % 41.0-71.0 Neutrophils /100 leukocytes in Blood by Automated count PLATELETS 213 10*3/mm3 150-450 Platelets [#/volume] in Blood by Automated count RDW_ 13.4 11.3-14.5 RDW, no uni ts MCHC 32.4 G/DL 32.0-36.0 MCHC [Mass/ volume] by Automated count MCH 29.1 pg 27.0-31.0 MCH [Entiti c mass] by Automated count MCV 89.9 fL 80.0-99.0 MCV [Entiti c volume] by Automated count HCT 43.5 % 34.5-44.0 Hematocrit [Volume Fraction] of Blood by Automated count HGB 14.1 g/dL 11.5-15.5 Hemoglobin [Mass/volume] in Blood RBC 4.84 10*6/mm3 3.89-5.14 Erythrocyt es [#/volume] in Blood by Automated count WBC 9.32 10*3/mm3 3.50-10.8 0 Leukocytes [#/volume] in Blood by Automated count Lab Report: COMPREHENSIVE ME TABOLIC PANEL ANIONGAP 9.0 mmol/L 3.0-11.0 anion gap, serum BUN/CREAT 10.2 7.0-25.0 Urea nitrogen/Creatinine [Mass Ratio] in Serum or Plasma GFRC 102 mL/min/1. 73m2 >60 Glomerular Filtration Rate Calculation BILI TOTAL 0.6 mg/dL 0.3-1.2 Bilirubin. total [Mass/volume] in Serum or Plasma ALK PHOS 53 U/L 25-100 Alkaline reza sphatase [Enzymatic activity/volume] in Blood SGOT (AST) 32 U/L 0-33 Aspartate aminotransferase [Enzymatic activity/volume] in Serum or Plasma SGPT (ALT) 43 U/L 7-40 H Alanine aminotransferase [Enzymatic activity/volume] in Serum or Plasma ALBUMIN 4.61 g/dL 3.20-4.80 Albumin [Mass/volume] in Serum or Plasma PROTEIN, TOT 6.8 g/dL 5.7-8.2 Protein [Mass/volume] in Serum or Plasma CALCIUM 9.6 mg/dL 8.7-10.4 Calcium [Moles/volume] in Serum or Plasma CO2 27.0 mmol/L 20.0-31.0 Carbon diox mireya, total [Moles/volume] in Venous blood CHLORIDE 104 mmol/L 99-109 Chloride [Moles/volume] in Serum or Plasma POTASSIUM 4.5 mmol/L 3.5-5.5 Potassium [Moles/volume] in Serum or Plasma SODIUM 140 mmol/L 132-146 Sodium [Moles/volume] in Serum or Plasma CREATININE 0.59 mg/dL 0.60-1.30 L Creatini ne [Mass/volume] in Serum or Plasma BUN 6 mg/dL 9-23 L Urea nitrogen [Mass/volume] in Serum or Plasma GLUCOSE SER 99 mg/dL 70-100 Glucose [Mass/volume] in Serum or Plasma Plan of Care Type Date Detail Pending order CBC with Differe ntial Pending order CMP Pending order CMP Pending order CBC with Differe ntial Pending order STAT Labs Pending order CMP Pending order CBC with Differe ntial Pending order STAT Labs Pending order Continue oral an tibiotics Pending order CMP Pending order CBC with Differe ntial Pending order CMP Pending order CBC with Differe ntial Pending order New Oral Antibio tic Pending order STAT Labs Pending order CMP Pending order CBC with Differe ntial Pending order T-SPOT Pending order Other Patient education Medications Patient education Medications Procedures Code Procedure Name Date Entry Date [id number] CBC with Differential 2017 CPT-25949 CMP CPT-63743 CMP [id number] CBC with Differential 2017 CPT-sl STAT Labs CPT-11135 CMP [id number] CBC with Differential 2017 CPT-sl STAT Labs CPT-Cooral Continue oral antibiotics 19/02/20 CPT-94085 CMP [id number] CBC with Differential 2017 CPT-10877 CMP [id number] CBC with Differential 2017 CPT-karina New Oral Antibiotic CPT-sl STAT Labs CPT-82948 CMP [id number] CBC with Differential 2017 CPT-05913 T-SPOT CPT-LAB Other Vital Signs Date Name Value Unit Description BMI (Body Mass Index) 27.80 kg/m2 Bod y Mass Index (Ratio) Body Temperature 97.7 [degF] temperat ure E&M BP Diastolic 80 mm[Hg] blood pressu re, diastolic BP Systolic 138 mm[Hg] blood pressur e, systolic Heart Rate 72 /min pulse rate Height 62 [in_us] height E&M Respiratory Rate 12 /min respirat ory rate E&M Weight Measured 152 [lb_av] weight E& M Weight Measured 152 [lb_av] weight E& M Immunizations No information available. Advance Directives Directive Description Start Date NO ADVANCED DIRECTIVES ESTABLISHED AT IS TIME
--- OUTSIDE RECORDS SUMMARY | 2024-11-24 09:35 | XMS_ITS ---
Laboratory report Created on: November 13, 2024 TRE RIDDLE : 1950 Sex: Female Author Organization Unknown PROBLEMS Problems List Code Description RESULTS Laboratory Orders Date Order Code Test 2024-11-10 [id number] TRIIODOTHYRONINE (T3) Laboratory Results Date LOINC Test Value Unit Reference Range Interpre tation 2024-11-10 3053-6 TRIIODOTHYRONINE (T3) 79 NG/DL 71-180
--- OUTSIDE RECORDS SUMMARY | 2024-11-24 09:35 | XMS_ITS ---
Laboratory report Created on: November 13, 2024 TRE RIDDLE : 1950 Sex: Female Author Organization Unknown PROBLEMS Problems List Code Description RESULTS Laboratory Orders Date Order Code Test 2024-11-10 [id number] HCV ANTIBODY Laboratory Results Date LOINC Test Value Unit Reference Range Interpre tation 2024-11-10 61358-1 HEP C VIRUS AB NR NON REACTIVE
--- OUTSIDE RECORDS SUMMARY | 2024-11-24 09:36 | XMS_ITS | Data Portability ---
Author Organization [facility] ADMIN Address [address] [place] [id number] Assessment No assessment recorded. Plan of Treatment Reminders Order Date Submit Date Provider Last Modified By Organization Details Last Modified Time Details Appointments OV EST 15 2024 01:15P Vesna Parekh M.D Not available Not available Not available OV EST 15 2024 11:00A Vesna Bhandari Jr, MD Not available Not available Not available Lab urinalysi s, dipstick 2024 025 [email or web address] [facility] [address], [address], 10/29/2024 20:39:19 TSH + free T4, serum 2023 024 [facility] , [address] [place] [address] [place], [address], 05/19/2024 14:10:37 T3, total, serum 2023 024 [facility] , [address] [place] [address] [place], [address], 11/11/2024 03:36:54 TSH + free T4, serum 2023 024 dennise Blanchard [facility] (Lab Registration) , [address] [place] [address] [place], [address], 02/19/2024 08:34:34 T3, total, serum 2023 024 [facility] (Lab Registration) , [address] [place] [address] [place], [address], 05/15/2024 06:12:58 TSH + free T4, serum 2023 024 [facility] (Lab Registration) , [address] [place] [address] [place], [address], 12/17/2023 13:12:29 T3, total, serum [address] [facility] (Lab Registration) , [address] [place] [address] [place], [address], 02/07/2024 13:12:09 TSH + free T4, serum 2023 024 [facility] (Lab Registration) , [address] [place] [address] [place], [address], 09/17/2023 13:19:01 T3, total, serum [address] [facility] (Lab Registration) , [address] [place] [address] [place], [address], 12/13/2023 03:38:24 Referral None recorded. Procedures bladder scan (PROC) 2024 025 [email or web address] [facility] [address], [address], 10/29/2024 20:39:19 Surgeries None recorded. Imaging None recorded. Medication Orders methenami ne hippurate 1 gram tablet 2024 025 [facility], [address], [place], [address], 10/28/2024 14:53:47 ascorbic acid (vitamin C) 500 mg tablet 2024 025 [facility], [address], [place], [address], 10/28/2024 14:53:51 tolterodi ne ER 4 mg capsule,e xtended release 24 hr 2024 025 [facility], [address], [place], [address], 10/28/2024 14:53:51 levothyro xine 75 mcg tablet 2023 024 [facility], [address], [place], [address], 05/19/2024 13:18:57 levothyro xine 75 mcg tablet 2023 024 [facility], [address], [place], [address], 02/19/2024 08:34:34 levothyro xine 75 mcg tablet 2023 024 [facility], [address], [place], [address], 12/17/2023 13:10:46 levothyro xine 75 mcg tablet 2023 024 [facility], [address] [facility], [place], [address], 09/17/2023 13:17:41 Patient TargetsNo targets recorded. Patient InstructionsNo instructions recorded. Reason for Referral None Reported. Results Created Date Observation Date Name Description Value Unit Range Abnormal Flag Note LastModifiedBy Organization Detail LastModifiedTime 09/12/19 24 09/12/2023 T4 FREE T4 free 1.17 NG/dL 0.78-2 .19 Not Available [facility] (Pre-Op Clinic) [address] [place] [address] [place], [address], 09/12/2023 11:00:44 09/12/19 24 09/12/2023 T4 FREE note Unles s other ramirez noted testi ng perfo rmed at: [facility] [address] [address] Guero laguerre MD Not Available [facility] (Pre-Op Clinic) [address] [place] [address] [place], [address], 09/12/2023 11:00:44 09/12/19 24 09/12/2023 TSH thyroid stim hormone 0.04 uIU/m L 0.465- 4.68 low Not Available [facility] (Pre-Op Clinic) [address] [place] [address] [place], [address], 09/12/2023 11:16:14 09/12/19 24 09/12/2023 TSH note Unles s other ramirez noted testi ng perfo [facility]med at: [facility] [address] [place] [address] Guero laguerre MD Not Available [facility] (Pre-Op Clinic) [address] [place] [address] [place], [address], 09/12/2023 11:16:14 09/12/19 24 09/12/2023 T3 TOTAL note Unlfide s other ramirez noted testi ng perfo rmed at: [facility] [address] [place] [address] Guero laguerre MD Not Available [facility] (Pre-Op Clinic) [address] [place] [address] [place], [address], 09/13/2023 11:19:12 09/12/19 24 09/13/2023 T3 TOTAL triiodothyro nine (T3) 89 NG/dL 71-180 Perfo rmed at: [facility] [address] [id number] Lab Direc tor: Nicola jacobsen PhD, Phone : [phone] Not Available [facility] (Pre-Op Clinic) [address] [place] [address] [place], [address], 09/13/2023 11:19:12 12/12/19 24 12/12/2023 T4 FREE T4 free 1.02 NG/dL 0.78-2 .19 Not Available [facility] (Pre-Op Clinic) [address] [place] [address] [place], [address], 12/12/2023 11:29:29 12/12/19 24 12/12/2023 T4 FREE note Unles s other ramirez noted testi ng perfo rmed at: [facility] [address] [place] [address] Guero laguerre MD Not Available [facility] (Pre-Op Clinic) [address] [place] [address] [place], [address], 12/12/2023 11:29:29 12/12/19 24 12/12/2023 TSH thyroid stim hormone 4.76 uIU/m L 0.465- 4.68 high Not Available [facility] (Pre-Op Clinic) [address] [place] [address] [place], [address], 12/12/2023 11:52:55 12/12/19 24 12/12/2023 TSH note Unles s other ramirez noted testi ng perfo rmed at: [facility] [address] [place] [address] Guero laguerre MD Not Available [facility] (Pre[facility]Op Clinic) [address] [place] [address] [place], [address], 12/12/2023 11:52:55 12/12/19 24 12/12/2023 T3 TOTAL note Unles s other ramirez noted testi ng perfo rmed at: [facility] [address] [place] [address] Guero laguerre MD Not Available [facility] (Pre-Op Clinic) [address] [place] [address] [place], [address], 12/13/2023 03:38:24 12/12/19 24 12/13/2023 T3 TOTAL triiodothyro nine (T3) 98 NG/dL 71-180 Perfo rmed at: [facility] [address] [address] Lab Direc tor: Nicola jacobsen PhD, Phone : [phone] Not Available [facility] (Pre[facility]Op [facility]) [address] [facility] [place], [address], 12/13/2023 03:38:24 02/06/20 24 02/06/2024 T4 FREE T4 free 1.15 NG/dL 0.78-2 .19 Not Available [facility] (Pre-Op Clinic) [address] [place] [address] [place], [address], 02/06/2024 10:58:36 02/06/20 24 02/06/2024 T4 FREE note Joan nina ramirez noted testi ng perfo rmed at: [facility] [address] [place] [address] Guero laguerre MD Not Available [facility] (Pre[facility]Op [facility]) [address] [place] [address] [place], [address], 02/06/2024 10:58:36 02/06/20 24 02/06/2024 TSH thyroid stim hormone 2.55 uIU/m L 0.465- 4.68 Not Available [facility] (Pre[facility]Op Clinic) [address] [place] [address] [place], [address], 02/06/2024 11:18:44 02/06/20 24 02/06/2024 TSH note Joan nina ramirez noted testi ng perfo rmed at: [facility] [address] [facility] [place] [address] Guero laguerre MD Not Available [facility] (Pre[facility]Op [facility]) [address] [place] [address] [place], [address], 02/06/2024 11:18:44 02/06/20 24 02/06/2024 T3 TOTAL note Joan laguerre other ramirez noted testi ng perfo rmed at: [facility] [address] [facility] [place] [address] Guero laguerre MD Not Available [facility] ([facility]Op [facility]) [address] [place], [address], 02/07/2024 13:12:09 02/06/20 24 02/07/2024 T3 TOTAL triiodothyro nine (T3) 83 NG/dL 71-180 Perfo rmed at: [facility] [address] [facility], [place] [address] Lab Direc tor: Nicola jacobsen PhD, Phone : [phone] Not Available [facility] (Pre[facility]Op [facility]) [address] [place] [address] [place], [address], 02/07/2024 13:12:09 05/14/20 24 05/14/2024 T4 FREE T4 free 1.42 NG/dL 0.78-2 .19 Not Available [facility] (Pre[facility]Op Clinic) [address] [place] [address] [place], [address], 05/14/2024 11:48:55 05/14/20 24 05/14/2024 T4 FREE note Unles s other ramirez noted testi ng perfo rmed at: [facility] [address] [place] [address] Guero laguerre MD Not Available [facility] (Pre[facility]Op [facility]) [address] [place] [address] [place], [address], 05/14/2024 11:48:55 05/14/20 24 05/14/2024 TSH thyroid stim hormone 1.37 uIU/m L 0.465- 4.68 Not Available [facility] (Pre[facility]Op [facility]) [address] [place] [address] [place], [address], 05/14/2024 12:15:21 05/14/2005/14/2024 TSH note Unles s other ramirez noted testi ng perfo rmed at: [facility] [address] [place] [address] Guero laguerre MD Not Available [facility] (Pre[facility]Op [facility]) [address] [place] [address] [place], [address], 05/14/2024 12:15:21 05/14/20 24 05/14/2024 T3 TOTAL note Unles s other ramirez noted testi ng perfo rmed at: [facility] [address] [place] [address] Guero laguerre MD Not Available [facility] (Pre[facility]Op [facility]) [address] [place] [address] [place], [address], 05/15/2024 06:12:58 05/14/20 24 05/15/2024 T3 TOTAL triiodothyro nine (T3) 82 NG/dL 71-180 Perfo rmed at: - [facility] [place] [address] Lab Direc tor: Nicola jacobsen PhD, Phone : [phone] Not Available [facility] (Pre-Op Clinic) [address] [place] [address] [place], [address], 05/15/2024 06:12:58 10/29/19 25 10/28/2024 bladd er scan (PROC ) Calculated Residual Urine: 58mL Not Available [facility] [address], [address], 10/28/2024 14:48:13 10/29/19 25 10/28/2024 urina lysis , dipst ick Leukocytes (reference range) trace Not Available [address], [address], 10/28/2024 14:47:30 10/29/19 25 10/28/2024 urina lysis , dipst ick Nitrite (reference range:) negati ve Not Available [address], [address], 10/28/2024 14:47:30 10/29/19 25 10/28/2024 urina lysis , dipst ick Urobilinogen (reference range) 0.2 Not Available [address], [address], 10/28/2024 14:47:30 10/29/1910/28/2024 urina lysis , dipst ick Protein (reference range) negati ve Not Available [address], [address], 10/28/2024 14:47:30 10/29/1910/28/2024 urina lysis , dipst ick pH (reference range 5-8.5) 6.5 Not Available [address], [address], 10/28/2024 14:47:30 10/29/1910/28/2024 urina lysis , dipst ick Blood (reference range:) negati ve Not Available [address], [address], 10/28/2024 14:47:30 10/29/1910/28/2024 urina lysis , dipst ick Specific [place] (reference range) 1.010 Not Available [address], [address], 10/28/2024 14:47:30 10/29/1910/28/2024 urina lysis , dipst ick Ketone (reference range) negati ve Not Available [address], [address], 10/28/2024 14:47:30 10/29/1910/28/2024 urina lysis , dipst ick Bilirubin (reference range) negati ve Not Available [address], [address], 10/28/2024 14:47:30 05/28/20 25 10/28/2024 urina lysis , dipst ick Glucose (reference range) negati ve Not Available [facility] [address], [address], 10/28/2024 14:47:30 10/29/19 25 10/28/2024 urina lysis , dipst ick Color (reference range: yellow-brown ) Yellow Not Available [facility] [address], [address], 10/28/2024 14:47:30 11/11/19 25 11/10/2024 T3 TOTAL note Unles s other ramirez noted testi ng perfo rmed at: [facility] [address] [place] [address] Guero laguerre MD Not Available [facility] (Pre[facility]Op [facility]) [address] [place] [address] [place], [address], 11/11/2024 03:36:54 11/11/19 25 11/11/2024 T3 TOTAL triiodothyro nine (T3) 79 NG/dL 71-180 Perfo rmed at: - [facility] [address] [address] Lab Direc tor: Nicola jacobsen PhD, Phone : [phone] Not Available [facility] (Pre[facility]Op [facility]) [address] [place] [address] [place], [address], 11/11/2024 03:36:54 Result Notes None recorded. Problems Name Problem SNOMED Code Status Onset Date Resolution Date Notes Provider Name and Address Organization Details Recorded Time Hypothyroid ism 88742702 Active 2021 ARABELLA Zavala [facility] - [place] & [place] 2 09:19:55 Essential hypertensio n 14102624 Active 2021 ARABELLA Zavala [facility] - [place] & [place] 2 09:20:01 Asthma 072792615 Active 2021 ARABELLA Zavala [facility] - [place] & [place] 2 09:20:10 Seasonal allergy 325457569 Active 2021 Trinidad Jain null, [place] - [facility] - [place] & [place] 2 09:20:27 Gastroesoph ageal reflux disease 594103104 Active 2021 Trinidad J[place] null, [place] [facility] [place] 2 09:20:32 Type 2 diabetes mellitus 09628189 Active 2021 Trinidad Jain null, [place] - [facility] - [place] 2 09:21:02 Hyperlipide katie 26298085 Active 2021 Trinidad Jain null, [place] - [facility] & [place] 2 09:21:19 Osteoarthri tis 138222640 Active 2021 Trinidad Jain null, [place] - [facility] - [place] & [place] 2 09:21:25 Rheumatoid arthritis 79985862 Active 2021 Trinidad Jain null, [place] - [facility] - [place] & [place] 2 09:21:30 Fibromyalgi a 710492787 Active 2021 Trinidad Jain null, [place] - [facility] - [place] 2 09:21:39 Tuberculosi s 09575898 Completed 202103/09/2022 Trinidad Jain null, [place] - [facility] - [place] & [place] 2 09:21:53 Problem Notes None recorded. Procedures Surgical History Date Name Laterality Status Provider Name and Address Organization Details Recorded Time 02/02/20 21 Thyroidectomy completed Trinidad Jain [place] - [facility] - [place] & [place] 03/09/2022 09:26:34 operation on urinary bladder completed Trinidad Jain [place] - [facility] - [place] & [place] 03/09/2022 09:25:09 Tubal Ligation completed Trinidad Jain [place] - [facility] - [place] & [place] 03/09/2022 09:25:20 Cholecystectomy completed Trinidad BELL - [facility] & [place] 03/09/2022 09:25:32 Unlisted procedure nose completed Trinidad Medeiros [place] [facility] [place] 03/09/2022 09:26:07 hysterectomy completed Trinidad Medeiros [place] & [place] 03/09/2022 09:26:20 Imaging Results None recorded. Procedure Notes None recorded. Medical Equipment None Reported. Allergies Allergen ID Allergen Name Allergen Category Reaction Reaction Severity Criticality Documentation Date Start Date Code Code System Note Provider Name and Address Organization Details Recorded Time 403468 amoxicill in medicatio n Not available Not available Not available 09/17/2023 723 RxNorm ARABELLA Cade [facility] & [place] 4 13:14:25 26843 fenofibra te medicatio n itching Not available Not available 03/09/2022 8703 RxNorm ARABELLA Zavala [facility] & [place] 2 09:19:02 55682 red yeast rice food,medi cation itching Not available Not available 03/09/2022 45023 0 RxNorm ARABELLA Zavala [facility] & [place] 2 09:19:17 Medications Name Sig Start Date [...] drops INSTILL 1 DROP INTO RIGHT EYE AT BEDTIME active Not Available Not Available [...] completed Not Available Not Available Not Available nystatin 100,000 unit/mL oral suspension SWISH & SWALLOW 5 ML BY MOUTH TWICE DAILY active Not Available Not Available No t Available carvedilol 6.25 mg tablet TAKE 1 TABLET BY MOUTH TWICE DAILY. TAKE WITH A MEAL/FOOD 05/19 completed Not Available Not Available Not Available trazodone 50 mg tablet TAKE 2 TABLETS BY MOUTH AT BEDTIME active Not Available Not Available No t Available azithromyci n 250 mg tablet TAKE 2 TABLETS ON THE FIRST DAY, THEN TAKE 1 TABLET EACH DAY ON THE NEXT 4 DAYS. 10/28 completed Not Available Not Available Not Available ibuprofen 800 mg tablet TAKE 1 TABLET BY MOUTH THREE TIMES DAILY WITH FOOD NEEDED 05/19 completed Not Available Not Available Not Available fluconazole 150 mg tablet TAKE 1 TABLET BY MOUTH ONCE DAILY FOR 5 DAYS active Not Available Not Available No t Available valacyclovi r 1 gram tablet TAKE 1 TABLET BY MOUTH ONCE DAILY 05/19 completed Not Available Not Available Not Available tolterodine ER 4 mg capsule,ext ended release 24 hr TAKE 1 CAPSULE BY MOUTH ONCE DAILY active Not Available Not Available No t Available hydrocodone 5 mg-acetamin ophen 325 mg tablet TAKE 1 TABLET BY MOUTH THREE TIMES DAILY 09/16 completed Not Available Not Available Not Available ciprofloxac in 500 mg tablet TAKE 1 TABLET BY MOUTH EVERY 12 HOURS FOR 10 DAYS 04/17 completed Not Available Not Available Not Available sulfamethox azole 800 mg-trimetho prim 160 mg tablet TAKE 1 TABLET BY MOUTH TWICE DAILY 10/28 completed Not Available Not Available Not Available carvedilol 3.125 mg tablet TAKE 1 TABLET BY MOUTH TWICE DAILY active Not Available Not Available No t Available levothyroxi ne 75 mcg tablet TAKE 1 TABLET BY MOUTH ONCE DAILY active Not Available Not Available No t Available oxycodone-a cetaminophe n 5 mg-325 mg tablet TAKE 1 TABLET BY MOUTH EVERY 4 HOURS 09/16 completed Not Available Not Available Not Available levothyroxi ne 88 mcg tablet TAKE 1 TABLET BY MOUTH ONCE DAILY FOR 90 DAYS 09/16 completed Not Available Not Available Not Available methenamine hippurate 1 gram tablet TAKE 1 TABLET BY MOUTH ONCE DAILY active Not Available Not Available No t Available ascorbic acid (vitamin C) 500 mg tablet Take 1 tablet 3 times a day by oral route for 30 days. 2024 active Not Available Not Available Not Avai lable tamsulosin 0.4 mg capsule TAKE 1 CAPSULE [...] TAKE 1 TABLET BY MOUTH ONCE DAILY active Not Available [...] TAKE 1 TABLET BY MOUTH ONCE DAILY active Not Available [...] completed Not Available Not Available Not Available albuterol sulfate HFA 90 mcg/actuati on aerosol inhaler INHALE 2 PUFFS BY MOUTH EVERY 6 HOURS NEEDED FOR SHORTNESS OF BREATH FOR WHEEZING active Not Available Not Available No t Available ketoconazol e 2 % topical cream [...] Updated DateTime 4 160.02 cm 25.5 kg/m2 71328.5 8 g 72 /min 97 % 97 % 96.7 [degF] 114 mm[Hg] 65 mm[Hg] Shantell BELL - [facility] - [place] & [place] 4 13:14:00 Date Recorded Body height Body mass index (BMI) Body weight Provider Name and Address Organization Details Last Updated DateTime 10/28/2024 160.02 cm 26.4 kg/m2 97299.26 g Julienne Matamoros [facility] [place] 10/28/2024 14:03:37 Date Recorded Body height Body mass index (BMI) Body weight Heart rate Oxygen saturation Oxygen saturation in Arterial blood by Pulse oximetry Body temperature Systolic blood pressure Diastolic blood pressure Provider Name and Address Organization Details Last Updated DateTime 4 160.02 cm 27.1 kg/m2 48615.3 5 g 77 /min 97 % 97 % 96.6 [degF] 107 mm[Hg] 63 mm[Hg] Shantell Larson [facility] & [place] 4 13:07:10 Date Recorded Body height Body mass index (BMI) Body weight Heart rate Oxygen saturation Oxygen saturation in Arterial blood by Pulse oximetry Body temperature Systolic blood pressure Diastolic blood pressure Provider Name and Address Organization Details Last Updated DateTime 4 160.02 cm 27.8 kg/m2 82327.7 2 g 65 /min 97 % 97 % 96.2 [degF] 125 mm[Hg] 73 mm[Hg] Shantellhalina Larson [facility] & [place] 4 13:15:04 Date Recorded Body height Body mass index (BMI) Body weight Heart rate Oxygen saturation Oxygen saturation in Arterial blood by Pulse oximetry Systolic blood pressure Diastolic blood pressure Provider Name and Address Organization Details Last Updated DateTime 4 160.02 cm 28 kg/m2 08546.8 8 g 78 /min 99 % 99 % 115 mm[Hg] 77 mm[Hg] Adina Villafuerte [facility] & [place] 4 13:03:26 Social History None recorded. Functional Status Question Answer Note LastModified by Organization D etails LastModified Time What is your level of alcohol consumption? None [email or web address] Information not available 10/28/2024 Mental Status None recorded. Family History Relationship Description Onset Age of this Age Resolved Age Notes LastModified by Organization Details LastModified Time Mother Coronary arterioscler osis deceas ed [email or web address] Not available 03/09/2022 09:22:17 Mother Malignant neoplasm of uterus deceas ed [email or web address] Not available 03/09/2022 09:22:31 Mother [...] History Condition Response Diabetes Y Allergies/Hayfever Y Fibromyalgia Y Arthritis Y Hypertension Y Hypothyroidism Y High Cholesterol Y Gynecological HistoryNo gynecological history recorded. Obstetrics History GPAL:G 0 P 0 0 0 0 Immunizations Vaccine Type Date Status Note Provider Nam e and Address Organization Details Recorded Time COVID-19, mRNA, LNP-S, PF, 100 mcg/0.5mL dose or 50 mcg/0.25mL dose 07/07/2020 completed ARABELLA Zavala [facility] & [place] 03/09/2022 09:19:35 COVID-19, mRNA, LNP-S, PF, 100 mcg/0.5mL dose or 50 mcg/0.25mL dose 08/04/2020 completed ARABELLA Zavala [facility] & [place] 03/09/2022 09:19:40 Past Encounters Encounter ID Performer Location Encounter Start Date Encounter Closed Date Diagnosis/Indication Diagnosis SNOMED-CT Code Diagnosis ICD10 Code Diagnosis Note [id number] Megan Parekh M.D [facility] [address] [place] [address] 04/17/2022 13:04:46 04/17/2022 15:11:56 Hypothyroidism 71627388 E03.9 Acquired hypothyroidism 823754220 E03.9 Gastroesop hageal reflux disease 353780634 K21.9 [id number] Megan Parekh M.D [place] [id number] 05/22/2022 13:17:12 05/22/2022 16:52:05 Acquired hypothyroidism 426628683 E03.9 [id number] [place] [address] 10/30/2022 13:03:04 10/30/2022 13:27:53 Acquired hypothyroidism 315132559 E03.9 [id number] Megan Parekh M.D [address] 6 01/01/2023 14:23:03 01/01/2023 14:53:19 Acquired hypothyroidism 357702639 E03.9 [id number] Megan Parekh M.D [place] [id number] 04/09/2023 13:39:04 04/09/2023 14:21:34 Acquired hypothyroidism 179228771 E03.9 [id number] Megan Parekh M.D [place] [id number] 06/04/2023 12:51:53 06/04/2023 13:42:12 Acquired hypothyroidism 566831951 E03.9 [id number] Megan Parekh M.D [address] [address] 09/17/2023 13:09:00 09/17/2023 13:19:26 Acquired hypothyroidism 914373092 E03.9 [id number] Megan Parekh M.D [place] [id number] 12/17/2023 12:45:09 12/17/2023 13:14:49 Acquired hypothyroidism 135913967 E03.9 [id number] [facility] [address] [place] [address] 02/18/2024 12:57:56 02/18/2024 13:30:27 Acquired hypothyroidism 346665884 E03.9 [id number] Megan Parekh M.D [facility] [address] [place] [address] 05/19/2024 12:55:51 05/19/2024 13:19:07 Acquired hypothyroidism 989733416 E03.9 [id number] Fabricio Bhandari Jr, MD [facility] [address] [address] 10/28/2024 13:40:04 10/28/2024 14:44:01 Recurrent urinary tract infection 365744661 N39.0 74-year-ol d white female with recurrent urinary tract infections and urge incontinen ce. We discussed her risk factors such as postmenopa usal and urinary and fecal incontinen ce. We will place her on methenamin e plus vitamin-C to alkalinize the urine. She was to drink at least 60 oz of fluids per day. She does have a prescripti on for estradiol we discussed using that intravagin ally. Urge incon tinence of urine 58304810 N39.41 Patient with urge incontinen ce requiring pad use. She was previously on anti muscarinic aches. Will place her back on Detrol 4 mg daily. Incontinence of feces 72 838729 R15.9 patient with history of fecal incontinen ce requiring pad use. We will consider referral to colorectal surgery for InterStim placement. Health Concerns Section Related Observation LastModified by Organization Detai ls LastModified Time None Recorded Concern Status LastModified by Organization Details LastModified Time None Recorded Advance Directives Directive None Recorded Payers Insurance Date Sequence Insurance Name Policy Number Policy Barbour Covered Member ID Barbour Member ID Guarantor Name 12/21/2023 1 [employer] (MEDICARE REPLACEMENT/AD VANTAGE - HMO) Kathleen Ordonez [id number] Kathleen Ordonez 05/29/2022 1 [place]MED[place]AC[place] HMO) [id number] Kathleen Ordonez [id number] Kathleen Ordonez 11/15/2024 1 [employer] (MEDICARE REPLACEMENT/AD VANTAGE - PPO) Kathleen Ordonez [id number] Kathleen Ordonez Notes Date Note Type Note Provider Name and Address Organization Details Recorded Time 09/17/2023 text/html Patient follows up for their hypothyroidismmanagem ent. s/p total thyroidectomy for multinodular goiter in 2020.Patient denies any hypothyroidism or hyperthyroidism signs and symptomsPatient admits to taking their thyroid medication faithfully.Labs: TSH 0.04 was 0.23 was 0.39 was 5.62 T4 1.17 was 1.32 T3 89 was 78 all questions answered in details Megan Parekh M.D [address] [place] [address] Drive, [address] [place], [address], [facility] & [place] 09/17/2023 13:33:54 12/17/2023 text/html Patient follows up for their hypothyroidismmanagem ent. s/p total thyroidectomy for multinodular goiter in 2020.Patient denies any hypothyroidism or hyperthyroidism signs and symptomsPatient admits to taking their thyroid medication faithfully.Labs: TSH 4.76 was 0.04 was 0.23 was 0.39 T4 1.02 was 1.17 was 1.32 T3 98 was 89 was 78 patient states she feels great. all questions answered in details Megan Parekh M.D [address] [place] [address] Drive, [address], [address], [facility] & [place] 12/17/2023 13:11:11 02/18/2024 text/html Patient follows up for their hypothyroidismmanagem ent. s/p total thyroidectomy for multinodular goiter in 2020.Patient denies any hypothyroidism or hyperthyroidism signs and symptomsPatient admits to taking their thyroid medication faithfully.Labs: TSH 2.55 was 4.76 T4 1.15 was 1.02 T3 83 was 98 patient states she feels great. all questions answered in details Megan Parekh M.D [address], [address], [address], [facility] & [place] 02/24/2024 09:01:00 05/19/2024 text/html Patient follows up for their hypothyroidismmanagem ent. s/p total thyroidectomy for multinodular goiter in 2020.Patient denies any hypothyroidism or hyperthyroidism signs and symptomsPatient admits to taking their thyroid medication faithfully.Labs: TSH 1.37 was 2.55 was 4.76 T4 1.42 was 1.15 was 1.02 T3 82 was 83 was 98 patient states she feels great. all questions answered in details Megan Parekh M.D [address] [place] [address], [address], [address], [facility] & [place] 05/20/2024 08:15:45 10/28/2024 text/html Patient is a 74-year-old white female referred for recurrent urinary tract infections and urge incontinence. She states she was seen Dr. Wong in the past and was treated with medications for urge incontinence for which she was no longer on. Review of her primary care physician's notes performed from 08/24/2024 as well as 04/09/2024. no urinary cultures are available from these visits. Her urine on 08/24/2024 showed only some trace leukocytes trace blood. Urinalysis on 04/09/2024 showed trace blood and trace leukocytes as well. Patient treated for urinary tract infection at each visit. Patient states she drinks about 3-4 bottles of water per day. She also states she has some fecal incontinence and wears pull-ups for urinary in fecal leakage. Urinalysis today is unremarkable. Fabricio Bhandari Jr, MD [address] [place] [address], [address], [place], [address], [facility] & [place] 10/29/2024 16:37:42 OBGyn Episode No OBEpisode recorded.
--- OUTSIDE RECORDS SUMMARY | 2024-11-24 09:36 | XMS_ITS | Continuity of Care Document ---
Author Organization [facility] Address [address] [place] [address] Assessment No assessment recorded. Plan of Treatment Reminders Order Date Submit Date Provider Last Modified By Organization Details Last Modified Time Details Appointments OV EST 15 2024 01:15P Vesna Parekh M.D Not available Not available Not available OV EST 15 2024 11:00A Vesna Bhandari Jr, MD Not available Not available Not available Lab urinalysi s, dipstick [address], [address], 10/29/2024 20:39:19 Referral None recorded. Procedures bladder scan (PROC) [address], [address] [place] [address], [address], 10/29/2024 20:39:19 Surgeries None recorded. Imaging None recorded. Medication Orders methenami ne hippurate 1 gram tablet 2024 025 [facility], [address], [place], [address], 10/28/2024 14:53:47 ascorbic acid (vitamin C) 500 mg tablet 2024 025 [facility], [address], [place], [address], 10/28/2024 14:53:51 tolterodi ne ER 4 mg capsule,e xtended release 24 hr 2024 025 [facility], [address], [place], [address], 10/28/2024 14:53:51 Patient TargetsNo targets recorded. Patient InstructionsNo instructions recorded. Reason for Referral None Reported. Results Created Date Observation Date Name Description Value Unit Range Abnormal Flag Note LastModifiedBy Organization Detail LastModifiedTime 10/29/1910/28/2024 bladd er scan (PROC ) Calculated Residual Urine: 58mL Not Available [address], [address], 10/28/2024 14:48:13 10/29/1910/28/2024 urina lysis , dipst ick Leukocytes (reference range) trace Not Available [address], [address], 10/28/2024 14:47:30 10/29/19 25 10/28/2024 urina lysis , dipst ick Nitrite (reference range:) negati ve Not Available [address], [address], 10/28/2024 14:47:30 10/29/19 25 10/28/2024 urina lysis , dipst ick Urobilinogen (reference range) 0.2 Not Available [address], [address], 10/28/2024 14:47:30 10/29/19 25 10/28/2024 urina lysis , dipst ick Protein (reference range) negati ve Not Available [address], [address], 10/28/2024 14:47:30 10/29/19 25 10/28/2024 urina lysis , dipst ick pH (reference range 5-8.5) 6.5 Not Available [address], [address], 10/28/2024 14:47:30 10/29/1910/28/2024 urina lysis , dipst ick Blood (reference range:) negati ve Not Available [address], [address], 10/28/2024 14:47:30 10/29/1910/28/2024 urina lysis , dipst ick Specific Henniker (reference range) 1.010 Not Available [address], [address], 10/28/2024 14:47:30 10/29/1910/28/2024 urina lysis , dipst ick Ketone (reference range) negati ve Not Available [address], [address], 10/28/2024 14:47:30 10/29/1910/28/2024 urina lysis , dipst ick Bilirubin (reference range) negati ve Not Available [address], [address], 10/28/2024 14:47:30 10/29/1910/28/2024 urina lysis , dipst ick Glucose (reference range) negati ve Not Available [address], [address], 10/28/2024 14:47:30 10/29/1910/28/2024 urina lysis , dipst ick Color (reference range: yellow-brown ) Yellow Not Available [address], [address], 10/28/2024 14:47:30 Result Notes None recorded. Problems Name Problem SNOMED Code Status Onset Date Resolution Date Notes Provider Name and Address Organization Details Recorded Time Hypothyroid ism 97513044 Active 2021 Trinidad Gilangela null, [place] [facility] [place] & [place] 2 09:19:55 Essential hypertensio n 32838080 Active 2021 Trinidad Gilvin [place], [place] [place] & [place] 2 09:20:01 Asthma 889104993 Active 2021 Trinidad Gilvin null, [place] [place] 2 09:20:10 Seasonal allergy 905924688 Active 2021 Trinidad Gilvin [place], [place] [place] 2 09:20:27 Gastroesoph ageal reflux disease 197849583 Active 2021 Trinidad Gilvin [place], [place] & [place] 2 09:20:32 Type 2 diabetes mellitus 87920412 Active 2021 Trinidad Gilvin [place], [place] & [place] 2 09:21:02 Hyperlipide katie 66289209 Active 2021 Trinidad Gilvin [place] 2 09:21:19 Osteoarthri tis 737439832 Active 2021 Trinidad Gilvin [place] 2 09:21:25 Rheumatoid arthritis 83484073 Active 2021 Trinidad Gilvin [place] 2 09:21:30 Fibromyalgi a 113556091 Active 2021 Trinidad Gilvin [place], [place] & [place] 2 09:21:39 Tuberculosi s 19220199 Completed 202103/09/2022 Trinidad Gilvin [place] & [place] 2 09:21:53 Problem Notes None recorded. Procedures Surgical History Date Name Laterality Status Provider Name and Address Organization Details Recorded Time 02/02/20 21 Thyroidectomy completed Trinidad ESTEBAN [facility] & [place] 03/09/2022 09:26:34 operation on urinary bladder completed Trinidad ESTEBAN [facility] & [place] 03/09/2022 09:25:09 Tubal Ligation completed Trinidad ESTEBAN [facility] & [place] 03/09/2022 09:25:20 Cholecystectomy completed Trinidad ESTEBAN [facility] & [place] 03/09/2022 09:25:32 Unlisted procedure nose completed Trinidad ESTEBAN [facility] & [place] 03/09/2022 09:26:07 hysterectomy completed Trinidad ESTEBAN [facility] & [place] 03/09/2022 09:26:20 Imaging Results None recorded. Procedure Notes None recorded. Medical Equipment None Reported. Allergies Allergen ID Allergen Name Allergen Category Reaction Reaction Severity Criticality Documentation Date Start Date Code Code System Note Provider Name and Address Organization Details Recorded Time 335817 amoxicill in medicatio n Not available Not available Not available 09/17/2023 723 RxNorm Shantell benites ARABELLA ESTEBAN [facility] & [place] 4 13:14:25 33370 fenofibra te medicatio n itching Not available Not available 03/09/2022 8703 RxNorm Trinidad benites ARABELLA ESTEBAN [facility] & [place] 2 09:19:02 80693 red yeast rice food,medi cation itching Not available Not available 03/09/2022 63814 0 RxNorm ARABELLA Zavala [facility] & [place] 2 09:19:17 Medications Name Sig Start Date [...] Updated DateTime 10/28/2024 160.02 cm 26.4 kg/m2 17729.26 g Julienne Matamoros [place] [facility] [place] 10/28/2024 14:03:37 Social History None recorded. Functional Status Question [...] avai lable 03/09/2022 09:22:41 Father Myocardial infarction deceas ed [email or web address] Not available 03/09/2022 09:22:52 Sister Alzheimer's disease deceas ed jkiskaden Not available 03/09/2022 09:23:10 Daughter Diabetes mellitus jkiskaden Not available 2021 09:23:22 Daughter Hypertensive disorder jkiskaden Not available 2021 09:23:34 Daughter Hyperlipidem ia jkiskaden Not available 2021 09:23:43 Daughter Hypothyroidi sm jkiskaden Not available 2021 09:23:56 Maternal Grandmother Malignant tumor of breast deceas ed jkiskaden Not available 03/09/2022 09:24:29 Maternal Grandmother Cerebrovascu lar accident deceas ed jkiskaden Not available 03/09/2022 09:24:47 Medical [...] dose or 50 mcg/0.25mL dose 07/07/2020 completed Trinidad benites, [place] [facility] & [place] 03/09/2022 09:19:35 COVID-19, mRNA, LNP-S, PF, 100 mcg/0.5mL dose or 50 mcg/0.25mL dose 08/04/2020 completed ARABELLA Zavala [facility] & [place] 03/09/2022 09:19:40 Past Encounters Encounter ID Performer Location Encounter Start Date Encounter Closed Date Diagnosis/Indication Diagnosis SNOMED-CT Code Diagnosis ICD10 Code Diagnosis Note [id number] Fabricio Bhandari Jr, MD [facility] [address] [address] 10/28/2024 13:40:04 10/28/2024 14:44:01 Recurrent urinary tract infection 635002824 N39.0 74-year-ol d white female with recurrent [...] intravagin ally. Urge incon tinence of urine 01644827 N39.41 Patient with urge incontinen ce requiring pad use. She was previously on anti muscarinic aches. Will place her back on Detrol 4 mg daily. Incontinence of feces 72 876533 R15.9 patient with history of fecal incontinen ce requiring pad use. We will consider referral to colorectal surgery for InterStim placement. Health Concerns Section Related Observation LastModified by Organization Detai ls LastModified Time None Recorded Concern Status LastModified by Organization Details LastModified Time None Recorded Payers Encounter Date Sequence Insurance Name Policy Number Policy Barbour Covered Member ID Barbour Member ID Guarantor Name 10/28/2024 1 [employer] (MEDICARE REPLACEMENT/ ADVANTAGE - PPO) Kathleen Ordonez [id number] Kathleen Ordonez Notes Date Note Type Note Provider Name and Address Organization Details Recorded Time 10/28/2024 text/html Patient is a 74-year-old white [...] today is unremarkable. Fabricio Bhandari Jr, MD [address] [place] [address], [address], [place], [address], [place] [facility] [place] & [place] 10/29/2024 16:37:42 OBGyn Episode No OBEpisode recorded.
[2024-11-24] MEDS: ALBUTEROL 0.083% 2.5 MG/3 ML NEB IH (12:24)
== END 2024-11-24 23:59 | disposition home or self-care (01) ==
PROVIDERS: PCP Family Medicine; Visit Provider Internal Medicine Pulmonary Disease
DX: J44.9 Chronic obstructive pulmonary disease, unspecified (principal)
CPT/HCPCS: 94060; 94618; 94726; 94729

== ENCOUNTER 2025-04-21 10:11 | Outpatient (CLI) | payer MEDICARE, SELFPAY ==
[2025-04-21 10:43] LABS: Hematocrit 35.6 % (37.0-47.0); Hemoglobin 10.9 g/dL (12.2-16.2); Immature Granulocytes % 0.3 %; Mean Corpuscular HGB Conc 30.6 g/dL (31.8-35.4); Mean Corpuscular Hemoglobin 25.7 pg (27.0-31.2); Mean Corpuscular Volume 84.0 fl (81-99); Nucleated Red Blood Cells % 0 %; Platelet Count 181 K/mm3 (142-424); Red Blood Count 4.24 M/mm3 (4.20-5.40); Red Cell Distribution Width-SD 45.6 fL; White Blood Count 6.9 K/mm3 (4.8-10.8)
[2025-04-21 11:30] LABS: Alanine Aminotransferase 17 U/L (12-78); Albumin Level 4.8 g/dl (3.5-5.0); Albumin/Globulin Ratio 2.0 (1.1-1.8); Alkaline Phosphatase 55 U/L (38-126); Anion Gap 13.3 mEq/L (5-15); Aspartate Amino Transferase 35 U/L (14-36); Bilirubin,Total 0.4 mg/dl (0.2-1.3); Blood Urea Nitrogen 10 mg/dl (7-17); Calcium 10.0 mg/dl (8.4-10.2); Carbon Dioxide 22 mmol/L (22.0-30.0); Chloride 105 mmol/L (98-107); Cholesterol 165 mg/dl (140-200); Creatinine,Serum 1.10 mg/dl (0.52-1.04); Estimated Glomerular Filt Rate 49 ml/min (>60); GFR (African American) 59 ML/MIN (>60); Globulin 2.4 g/dL (1.3-3.2); Glucose 96 mg/dl (74-100); HDL Cholesterol 46 mg/dl (40-60); Potassium 4.3 mmoL/L (3.5-5.1); Sodium 136 mmol/L (136-145); Total Protein,Serum 7.2 g/dl (6.3-8.2); Triglycerides 236 mg/dl (30-150)
[2025-04-21 11:34] LABS: C-Reactive Protein 1.1 mg/L (0-4)
[2025-04-21 12:02] LABS: Thyroid Stimulating Hormone 5.64 uIU/mL (0.465-4.68)
== END 2025-04-21 23:59 | disposition home or self-care (01) ==
LOC: LAB 10:12
PROVIDERS: Internal Medicine; PCP Family Medicine; Visit Provider Family Medicine
DX: D64.9 Anemia, unspecified (principal); I10 Essential (primary) hypertension; Z98.890 Other specified postprocedural states; Z90.89 Acquired absence of other organs; R79.89 Other specified abnormal findings of blood chemistry
CPT/HCPCS: 36415; 80053; 80061; 84443; 85025; 85651; 86140